=== PATIENT | male | born 1950 | race Caucasian/White ===

== ENCOUNTER 2016-12-20 14:48 | Day surgery (SDC) | payer OTHER ==
[2016-12-20] MEDS ORDERED: PROPOFOL 200 MG/20 ML VIAL ONE ×3 (16:02→16:11)
--- NOTE | 2016-12-20 16:12 | PDANEPAE ---
ANE History of Present Illness hx barretts esphagous ANE Past Medical History - Cardiovascular History Hx Hypertension: No Hx Arrhythmias: No Hx Chest Pain: No Hx Coronary Artery / Peripheral Vascular Disease: No Hx CHF / Valvular Disease: No Hx Palpitations: No - Pulmonary History Hx COPD: No Hx Asthma/Reactive Airway Disease: No Hx Recent Upper Respiratory Infection: No Hx Oxygen in Use at Home: No Hx Sleep Apnea: No Sleep Apnea Screening Result - Last Documented: Negative - Neurologic History Hx Cerebrovascular Accident: No Hx Seizures: No Hx Dementia: No Neurologic History Comment: CONCUSSION YRS AGO - Endocrine History Hx Diabetes: No - Renal History Hx Renal Disorders: Yes Renal History Comment: BPH. PROSTATITIS 2000. NOCTURIA - Liver History Hx Hepatic Disorders: Yes Hepatic History Comment: G[place]STONE - Neurological & Psychiatric Hx Hx Neurological and Psychiatric Disorders: No - Cancer History Hx Cancer: Yes Cancer History Comment: NEW DX LEUKEMIA 05/2015. PREV MELANOMA - Congenital Disorder History Hx Congenital Disorders: No - GI History Hx Gastrointestinal Disorders: Yes Gastrointestinal History Comment: REFLUX. EGD SHOWED BARRETTS. HEMORRHOIDS - Other Health History Other Health History: OSTEOARTHRITIS - Chronic Pain History Chronic Pain: No - Surgical History Prior Surgeries: BILATERAL TOTAL KNEE. REMVL MELANOMA LT LET. RT ING HERNIA. NEGRITA PATELLAR REALIGNMENT. REMVL LIPOMA FROM BACK ANE Review of Systems Review of Systems: - Exercise capacity Exercise capacity: <4 METS METS (RN): 5 METS ANE Patient History - Allergies Allergies/Adverse Reactions: tetracycline [Tetracycline] Allergy (Verified 02/18/11 16:17) Rash - Home Medications Home Medications: Omeprazole [Prilosec 20 mg] 20 mg PO DAILY 07/28/15 [Last Taken 12/20/16] Aspirin 81mg (*) 12/10/16 [Last Taken 12/18/16] Simvastatin 40 DAILY 12/10/16 [Last Taken 12/19/16] - NPO status NPO Since - Liquids (Date): 12/20/16 NPO Since - Liquids (Time): 11:00 NPO Since - Solids (Date): 12/19/16 NPO Since - Solids (Time): 20:00 - Smoking Hx Smoking Status: Former smoker - Family Anes Hx Family Hx Anesthesia Complications: none ANE Labs/Vital Signs - Vital Signs Blood Pressure: 159/90 Heart Rate: 71 Respiratory Rate: 16 O2 Sat (%): 97 Height: 190.5 cm Weight: 97.522 kg ANE Physical Exam - Airway Neck exam: FROM Mouth exam: normal dental/mouth exam - Pulmonary Pulmonary: no respiratory distress, no rales or rhonchi, clear to auscultation - Cardiovascular Cardiovascular: regular rate and rhythym - ASA Status ASA Status: I
--- NOTE | 2016-12-20 16:21 | PDGENHP ---
History & Physical Chief Complaint: heartburn History of Present Illness: heartburn Pertinent Past, Social, Family History: N/A Relevant Physical Exam: cor RRR pul CTAP abd NT ms nl
--- NOTE | 2016-12-20 16:46 | GIREPORT ---
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 Bx positive for "Cuevas's", as per pt. On omeprazole 40 mg daily since, but denies heartburn, even before this. Providers: Erik Engle MD Referring MD: Dean Garcia MD Medicines: Sedation Administered by an Anesthesia Professional Complications: No immediate complications. Description of Procedure: After obtaining informed consent, the endoscope was passed under direct vision. Throughout the procedure, the patient's blood pressure, pulse, and oxygen saturations were monitored continuously. The Endoscope was intro duced through the mouth, and advanced to the second part of duodenum. Findings: The examined esophagus was normal. No obvious Cuevas's seen. Biopsies were taken with a cold forceps for histology, just below the GE junction. The stomach was normal. The examined duodenum was normal. Estimated Blood Loss: Estimated blood loss: none. Post Op Diagnosis: - As above. No obvious Cuevas's. Biopsies done, to be complete, but may very well be normal. Recommendation: - Await pathology results. Further management, such as repeat EGD in 5 years if Cuevas's present (vs. do nothing), stopping omeprazole, etc., aurea hu on this result. We will call the pt. with these results. - Else, return to primary care physician PRN. Thank you! Kadie Valencia MD Erik Engle MD 12/20/2016 4:45:29 PM This report has been signed electronicallyPeter MD Kadie Number of Addenda: 0 Note Initiated On: 12/20/2016 3:52 PM [email or web address]
[2016-12-20] MEDS ORDERED: NALOXONE HCL 0.4 MG/ML INJ IVP PRN (16:53)
--- NOTE | 2016-12-20 16:53 | POSTANESTH ---
Post Anesthetic Evaluation Respiratory Status: Normal, Stable Level of Consciousness/Mental Status: Can Participate in Eval Pain Control: Adequate, Prn Tx Ordered Complications Possibly Related to Anesthesia: None Noted (awake)
[2016-12-20 17:09] VITALS: TEMP 97.9
[2016-12-20 17:23] VITALS: BP 132/81; PULSE 62; RESP 14; O2SAT 94
== END 2016-12-20 17:30 | disposition home or self-care (01) ==
LOC: FSGY 14:48
PROVIDERS: ATTEND Internal Medicine Gastroenterology
PROC: 0DB38ZX Excision of Lower Esophagus, Via Natural or Artificial Opening Endoscopic, Diagnostic (ICD-10-PCS; principal; 2016-12-20 16:00)
DX: K22.70 Barrett's esophagus without dysplasia (principal)
CPT/HCPCS: J2704

== ENCOUNTER → 2017-04-14 | Day surgery (SDC) | payer OTHER | END | disposition home or self-care (01) | LOC: FIMAGING 09:47 | PROVIDERS: ATTEND Internal Medicine Hematology & Oncology | PROC: 02HV33Z Insertion of Infusion Device into Superior Vena Cava, Percutaneous Approach (ICD-10-PCS; principal; 2017-04-14) | DX: C92.00 Acute myeloblastic leukemia, not having achieved remission (principal) | CPT/HCPCS: 36569; 77001; C1751 ==

== ENCOUNTER 2017-04-15 10:06 | Inpatient (IN) | payer OTHER ==
--- NOTE | 2017-04-15 13:09 | ECHO ---
[email or web address] [address] [address] Main: [phone] Fax: Transthoracic Echocardiogram Name: LAITH MENDEZ MR#: [id number] Study Date: 04/15/2017 Study Time: 11:50 AM Date of : 1950 Age: 66 year(s) Height: 190.5 cm (75 in.) Weight: 97.52 kg (215 lb.) BSA: 2.26 m2 Gender: Male Examination: Limited Echo Indication: limited echo to assess LV ejection fraction pre-chemo Image Quality: Adequate Contrast: Requested by: Renee Null BP: / Heart Rate: Rhythm: Indication: limited echo to assess LV ejection fraction pre-chemo Procedure Staff Show Operations Supervisor: Mary Devi [facility] Reading Physician: Justin Serrano MD Requesting Provider: Conclusions: Normal size left ventricle. No LV hypertrophy. Normal global systolic LV function. EF is 56 %. Limited study to assess LV function. Measurements: Chambers Valvular Assessment AV/MV Valvular Assessment TV/PV Normal Normal Normal Name Value Range Name Value Range Name Value Range IVSd (2D): 0.8 cm (0.6 cm-1.1 cm) LVDd (2D): 5.2 cm (4.2 cm-5.9 cm) LVDs (2D): 3.7 cm (2.1 cm-4 cm) LVPWd (2D): 0.9 cm (0.6 cm-1 cm) LVEF (BP): 56 % (>=55 %) Continued Measurements: Findings: Left Ventricle: Normal size left ventricle. No LV hypertrophy. Normal global systolic LV function. EF is 56 %. No regional wall motion abnormality. Exam Comments: Limited study to assess LV function. Patient: LAITH MENDEZ Study Date: 04/15/2017 Page 1 of 2 11:50 AM (No Signature Object) Patient: LAITH MENDEZ Study Date: 04/15/2017 Page 2 of 2 11:50 AM [id number]
--- NOTE | 2017-04-15 13:29 | GCON ---
[f rep st] CONSULTATION ONCOLOGY INITIAL VISIT. REASON FOR REQUEST: Recurrent AML. HISTORY OF PRESENT ILLNESS: Shar is a 66-year-old gentleman who was initially diagnosed with AML on May 19, 2015. He was treated with standard 7+3 induction chemotherapy. His malignancy showed nor mal cytogenetics, FLT3 negative, NPM1 positive. He then underwent consolidation with high-dose cytar abine for 4 cycles and all treatment finished in September 2015. He remained in remission and was doing well. I saw him in routine followup on April 06. He had no symptoms, but he had new thrombocy topenia and nucleated red blood cells. Flow cytometry showed 20% blasts in the peripheral blood. On Tuesday, he had a formal bone marrow biopsy, which the results are still pending, but the flow on bone marrow showed 43% blasts. He has met with bone marrow transplant yesterday and he is being ad mitted today for re-induction chemotherapy. He has no complaints. PAST MEDICAL HISTORY: Chronic illnesses include the acute leukemia as described in HPI. His first cy edgard was complicated with an enterocolitis. He also has early Cuevas's esophagitis. ALLERGIES: Tetracycline and perhaps acyclovir. HOME MEDICATIONS: Aspirin, omeprazole as needed, and simvastatin. PAST SURGICAL HISTORY: Includes bilateral knee replacement, hernia repair, and excision of a melanom a from left knee. Please add under chronic illnesses. FAMILY HISTORY: Father was diagnosed with metastatic renal cell carcinoma. His sister with previous history of breast cancer. Three children in good health. SOCIAL HISTORY: He is . 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 Uses alcohol rarely. Does not use illicit drugs. He never smoked. He did receive his flu vaccine this year and his last colonoscopy was 2013. REVIEW OF SYSTEMS: A 10-point review of systems performed, pertinent positives in HPI, otherwise neg ative. PHYSICAL EXAM: VITAL SIGNS: Weight is 214, temperature is 97.8, pulse 60, blood pressure last was 1 20/70. General: He is a well-appearing gentleman, no distress. HEENT: Unremarkable. LUNGS: Clear . CARDIAC: Regular. He has a PICC line in the right upper extremity. No sign or symptom of infecti on or inflammation. SKIN: Shows no significant rash or abnormalities. ABDOMEN: Soft, nontender, w ithout hepatosplenomegaly. NODES: Reveal no peripheral lymphadenopathy. MUSCULOSKELETAL: Nontender . NEUROLOGIC: Grossly intact. LABS: Bone marrow biopsy results and flow cytometry as per HPI. Final results still pending. Most recent white count was 4200 with an ANC of 1400, hemoglobin is normal at 15.6, platelet count 92,000. Again, blast count was about 20% in the peripheral blood. IMPRESSION: 1. Recurrent acute myelogenous leukemia. 2. Enterocolitis with first cycle of chemotherapy. 3. History of early Cuevas's esophagitis. He is essentially asymptomatic, but is showing recurrent AML. The plan is to reinduced him with 7 an d 3 since it has been 2 years since his induction. Once he goes in remission, the next plan is to un dergo an allogeneic bone marrow transplant for cure. The patient is aware of the situation and had n o further questions. He has had a PICC line placed for the chemotherapy and will get a baseline echo cardiogram. Otherwise, he is clinically stable to proceed on with chemotherapy. He can use either H 2 ilda or PPI as needed for acid reflux. I do not recommend aggressive hydration or allopurinol s jamar he is taking things orally fine at this time. I think the risk of severe tumor lysis is low. /[id number]/MODL
[2017-04-15] MEDS ORDERED: ONDANSETRON DISINTEGRATING 4 MG TAB PO PRN (15:29)
[2017-04-15] MEDS ORDERED: oxyCODONE IR 5 MG TAB PO PRN (15:29)
[2017-04-15] MEDS: DEXAMETHASONE 4 MG TAB PO SCH (15:33)
[2017-04-15] MEDS: ONDANSETRON 4 MG/2 ML VIAL IVP SCH (15:34)
--- NOTE | 2017-04-15 15:37 | PDGENHP ---
History and Physical - Chief Complaint elective chemotherapy - History of Present Illness The pt is a 66 yo male with recurrent AML here for elective chemotherapy. Recurrence recently discovered during routine f/u. He is not symptomatic. He is being admitted for elective chemotherapy He has a hx of chemotherapy induced enterocolitis No GI sxs at this time Afebrile. no cp, sob, edema, n/v/d, focal weakness PMHx: AML, chemotherapy induced enterocolitis, Barrets Esophagus, HLD, Melanoma Left Knee SurgHx: bilateral knee replacements, hernia repair SocHx: No T/E/I FmHx: NC Labs: none Echo: done today. WNL, preserved LVEF History Information - Allergies/Home Medication List Allergies/Adverse Reactions: neomycin Allergy (Verified 04/15/17 11:22) Unknown tetracycline [Tetracycline] Allergy (Verified 04/15/17 11:22) Rash Home Medications: Aspirin [Aspirin 81mg (*)] 81 mg PO DAILY 04/15/17 [Last Taken 04/01/17] Omeprazole 40 mg PO DAILY 04/15/17 [Last Taken Unknown] Simvastatin 40 mg PO HS 04/15/17 [Last Taken 04/01/17] Triazolam [Halcion 0.25MG (*)] 0.25 mg PO HS PRN 04/15/17 [Last Taken Unknown] I have personally reviewed and updated: medical history, social history - Social History Smoking Status: Former smoker Review of Systems Review of Systems: ROS: 10pt was reviewed & negative except for what was stated in HPI & below Physical Exam Physical Exam: Temp Pulse Resp BP Pulse Ox 36.7 C 58 L 16 134/70 H 95 04/15/17 12:03 04/15/17 12:03 04/15/17 12:03 04/15/17 12:03 04/15/17 12:03 Constitutional: no apparent distress Eyes: PERRL, EOMI Ears, Nose, Mouth, Throat: moist mucous membranes, hearing normal Cardiovascular: regular rate and rhythym, No edema Respiratory: no respiratory distress, no rales or rhonchi Gastrointestinal: normoactive bowel sounds, soft, non-tender abdomen Skin: warm Musculoskeletal: full muscle strength Neurologic: AAOx3 Psychiatric: interacting appropriately, not anxious, not encephalopathic, thought process linear Lymph, Heme, Immunologic: No petechiae Assessment & Plan Assessment: #Recurrent AML -elective Chemotherapy #Hx of chemotherapy induced enterocolitis Plan: Admission Chemo per Onc PICC line Lovenox for DVT proph Limited code, no chest compressions, confirmed today
--- NOTE | 2017-04-15 15:37 | ASMTCMCOM ---
CM Note CM Note Notes: Pt direct admit from [facility] for recurrence of AML. Plan is to place PICC and start chemo for reinduction. pt planning on bone marrow transplant in future. CM to follow for DC needs. Date Signed: 04/15/2017 03:37 PM Electronically Signed By:Ewa Fraire LCSW
[2017-04-15] MEDS ORDERED: TRIAZOLAM 0.25 MG TAB PO PRN (15:40)
--- NOTE | 2017-04-15 16:10 | PDMN ---
Medical Necessity Medical necessity: Patient meets inpatient criteria per physician note and [facility] [place] M -87 Chemotherapy (re-induction of chemo for recurrent AML; bone marrow biopsy /results pending; history of enterocolitis w/first cycle of chemotherapy; anticipated LOS > 2 midnights for ongoing chemo and monitoring of labs/chemo side effects.). .
[2017-04-15] MEDS: IDARUBICIN IV SCH (16:55)
[2017-04-15] MEDS: NS IV SCH (17:31)
[2017-04-15] MEDS: CYTARABINE IV SCH (17:31)
[2017-04-15] MEDS ORDERED: ATORVASTATIN CALCIUM 20 MG TAB PO SCH (21:00)
[2017-04-16 06:13] LABS: PLATELET COUNT 90 10^3/uL (150-400)
--- NOTE | 2017-04-16 08:23 | SOAPPROG ---
SOAP Progress Note Assessment/Plan: Assessment: 1. AML, relapse, Day 1 reinduction 2.History neutropenic enterocolitis 3. History Cueavs's esophagus Plan:Proceed with chemo today, echo ok with EF 56%.Will d/c asa and lipitor, stop lovenox when plts less than 50K 04/16/17 08:19 Subjective: Feels ok today, no complaints Objective: Vital Signs Temp Pulse Resp BP Pulse Ox 98.1 F 66 18 115/67 94 04/16/17 07:30 04/16/17 07:30 04/16/17 07:30 04/16/17 07:30 04/16/17 07:30 Laboratory Results 04/16/17 05:50 04/16/17 05:50 04/15/17 04/16/17 04/17/17 05:59 05:59 05:59 Intake Total 1200 536 Balance 1200 536 Physical Exam - Physical Exam General Appearance: alert, no apparent distress Respiratory: lungs clear, normal breath sounds Cardiac/Chest: regular rate, rhythm Abdomen: normal bowel sounds, non-tender Extremities: other (Pic R arm) ICD10 Worksheet Patient Problems: Problems Problem Status Onset AML (acute myeloblastic leukemia) Acute Neutropenic colitis Acute Thrombocytopenia due to diminished platelet production Acute
[2017-04-16] MEDS ORDERED: ASPIRIN 81 MG CHEWABLE TAB PO SCH (09:00)
[2017-04-16] MEDS ORDERED: PROMETHAZINE HCL 25 MG/ML INJ IVP PRN (09:58)
[2017-04-16] MEDS: PANTOPRAZOLE SODIUM 40 MG TAB PO SCH (09:58)
[2017-04-16] MEDS: ENOXAPARIN 40 MG/0.4 ML SYR SC SCH ×2 (09:58→10:31)
--- NOTE | 2017-04-16 12:12 | HOSPPROG ---
Hospitalist Progress Note Assessment/Plan: #Recurrent AML -elective Chemotherapy #Hx of chemotherapy induced enterocolitis Plan: Chemo per Onc PICC line stop Lovenox per his request ASA and Lipitor stopped by Onc Limited code, no chest compressions, confirmed on admission Subjective: no new complaints Objective: Vital Signs Temp Pulse Resp BP Pulse Ox 36.7 C 66 18 115/67 94 04/16/17 07:30 04/16/17 07:30 04/16/17 07:30 04/16/17 07:30 04/16/17 07:30 Laboratory Results 04/16/17 05:50 04/16/17 05:50 04/15/17 04/16/17 04/17/17 05:59 05:59 05:59 Intake Total 1200 536 Balance 1200 536 - Physical Exam Constitutional: no apparent distress Eyes: PERRL, EOMI Ears, Nose, Mouth, Throat: moist mucous membranes, hearing normal Cardiovascular: regular rate and rhythym, No edema Respiratory: no respiratory distress Gastrointestinal: normoactive bowel sounds, soft, non-tender abdomen Skin: warm Neurologic: AAOx3 Psychiatric: interacting appropriately, not anxious, not encephalopathic ICD10 Worksheet Patient Problems: Problems Problem Status Onset AML (acute myeloblastic leukemia) Acute Neutropenic colitis Acute Thrombocytopenia due to diminished platelet production Acute
[2017-04-16] MEDS: ONDANSETRON 4 MG/2 ML VIAL IVP PRN (12:47)
[2017-04-16] MEDS: DEXAMETHASONE 4 MG TAB PO SCH (15:49)
[2017-04-16] MEDS: ONDANSETRON 4 MG/2 ML VIAL IVP SCH (15:51)
[2017-04-16] MEDS: IDARUBICIN IV SCH (16:49)
[2017-04-16] MEDS: CYTARABINE IV SCH (17:38)
[2017-04-16] MEDS: NS IV SCH (17:38)
[2017-04-17 05:23] LABS: PLATELET COUNT 83 10^3/uL (150-400)
[2017-04-17] MEDS: PANTOPRAZOLE SODIUM 40 MG TAB PO SCH (08:22)
[2017-04-17] MEDS: ONDANSETRON 4 MG/2 ML VIAL IVP PRN (08:22)
--- NOTE | 2017-04-17 08:25 | SOAPPROG ---
SOAP Progress Note Assessment/Plan: Assessment: 1. AML, relapse, Day 2 reinduction 2.History neutropenic enterocolitis 3. History Cuevas's esophagus Plan:continue chemo, follow counts, review bone marrow results this week 04/16/17 08:19 04/17/17 08:22 Subjective: Feels ok, appetite down a bit Objective: Vital Signs Temp Pulse Resp BP Pulse Ox 97.8 F 68 18 113/54 L 96 04/17/17 08:11 04/17/17 08:11 04/17/17 08:11 04/17/17 08:11 04/17/17 08:11 Laboratory Results 04/17/17 05:00 04/17/17 05:00 04/16/17 04/17/17 04/18/17 05:59 05:59 05:59 Intake Total 1200 2466 Output Total 5 Balance 1200 2461 Physical Exam - Physical Exam General Appearance: alert, no apparent distress Respiratory: lungs clear Cardiac/Chest: regular rate, rhythm Abdomen: normal bowel sounds, non-tender ICD10 Worksheet Patient Problems: Problems Problem Status Onset AML (acute myeloblastic leukemia) Acute Neutropenic colitis Acute Thrombocytopenia due to diminished platelet production Acute
--- NOTE | 2017-04-17 11:55 | HOSPPROG ---
Hospitalist Progress Note Assessment/Plan: #Recurrent AML -elective Chemotherapy #Hx of chemotherapy induced enterocolitis #Thrombocytopenia, monitor, platelets 83 today Plan: Chemo/reinduction per Onc PICC line no Lovenox per his request ASA and Lipitor stopped by Onc Limited code, no chest compressions, confirmed on admission Subjective: no overnight events. no new complaints Objective: Vital Signs Temp Pulse Resp BP Pulse Ox 36.6 C 68 18 113/54 L 96 04/17/17 08:11 04/17/17 08:11 04/17/17 08:11 04/17/17 08:11 04/17/17 08:11 Laboratory Results 04/17/17 05:00 04/17/17 05:00 04/16/17 04/17/17 04/18/17 05:59 05:59 05:59 Intake Total 1200 2466 Output Total 5 Balance 1200 2461 - Physical Exam Constitutional: no apparent distress Eyes: PERRL, EOMI Ears, Nose, Mouth, Throat: moist mucous membranes, hearing normal Cardiovascular: regular rate and rhythym, No edema Respiratory: no respiratory distress, no rales or rhonchi Gastrointestinal: normoactive bowel sounds, soft, non-tender abdomen Skin: warm Neurologic: AAOx3 Psychiatric: interacting appropriately, not anxious, not encephalopathic ICD10 Worksheet Patient Problems: Problems Problem Status Onset AML (acute myeloblastic leukemia) Acute Neutropenic colitis Acute Thrombocytopenia due to diminished platelet production Acute
[2017-04-17] MEDS: PROCHLORPERAZINE MALEATE 10 MG TAB PO PRN (14:34)
[2017-04-17] MEDS ORDERED: PALONOSETRON HCL 0.25 MG/5 ML VIAL IVP SCH (15:30)
[2017-04-17] MEDS: DEXAMETHASONE 4 MG TAB PO SCH (15:30)
[2017-04-17] MEDS: IDARUBICIN IV SCH (16:52)
[2017-04-17] MEDS: CYTARABINE IV SCH (17:06)
[2017-04-17] MEDS: NS IV SCH (17:06)
[2017-04-18] MEDS: PROCHLORPERAZINE MALEATE 10 MG TAB PO PRN ×4 (00:50→22:27)
[2017-04-18 05:34] LABS: PLATELET COUNT 71 10^3/uL (150-400)
--- NOTE | 2017-04-18 09:13 | HOSPPROG ---
Hospitalist Progress Note Assessment/Plan: #AML: here for elective reinduction chemo. Day 4 #Pancytopenia: due to above #h/o neutropenic enterocolitis #h/o Cuevas's esophagus: PPI #Nausea: had hard time with this last admission. Encouraged him to take companzine BID for better control #DVT ppx: ambulating #Disp: cont inpatient admission for IV chemo Subjective: mild nausea last night. No emesis Objective: Vital Signs Temp Pulse Resp BP Pulse Ox 36.6 C 66 16 119/56 L 91 L 04/18/17 07:11 04/18/17 07:11 04/18/17 07:11 04/18/17 07:11 04/18/17 07:11 Laboratory Results 04/18/17 05:15 04/18/17 05:15 04/17/17 04/18/17 04/19/17 05:59 05:59 05:59 Intake Total 2466 1621 Output Total 5 Balance 2461 1621 - Physical Exam Constitutional: no apparent distress Eyes: PERRL Ears, Nose, Mouth, Throat: moist mucous membranes Cardiovascular: regular rate and rhythym, No edema Respiratory: no respiratory distress, no rales or rhonchi Gastrointestinal: normoactive bowel sounds, soft, non-tender abdomen Genitourinary: no bladder fullness Skin: warm Musculoskeletal: full muscle strength Neurologic: AAOx3, CN II-XII Intact Psychiatric: interacting appropriately ICD10 Worksheet Patient Problems: Problems Problem Status Onset AML (acute myeloblastic leukemia) Acute Neutropenic colitis Acute Thrombocytopenia due to diminished platelet production Acute
[2017-04-18] MEDS: PANTOPRAZOLE SODIUM 40 MG TAB PO SCH ×2 (09:34→09:35)
--- NOTE | 2017-04-18 10:19 | SOAPPROG ---
SOAP Progress Note Assessment/Plan: Assessment/Plan: 66 yo gentleman w relapsed AML admitted for re-induction 1. Relapsed AML - admitted for 7+3, Day 4 today doing well counts stable supportive care pending final bone marrow results and molecular analysis plan transplant at [facility] 2. Hx of neutropenic enterocolitis 3. Hx of Cuevas's esophagus 4. Thrombocytopenia - AML + chemo 04/18/17 10:16 Subjective: No acute events mild nausea denies SOB or abdominal pain Objective: Vital Signs Temp Pulse Resp BP Pulse Ox 36.6 C 66 16 119/56 L 91 L 04/18/17 07:11 04/18/17 07:11 04/18/17 07:11 04/18/17 07:11 04/18/17 07:11 Laboratory Results 04/18/17 05:15 04/18/17 05:15 04/17/17 04/18/17 04/19/17 05:59 05:59 05:59 Intake Total 2466 1621 Output Total 5 Balance 2461 1621 Gen - NAD HEENT - OP clear CV - RRR Chest - CTAB Abd - soft, NT, BS+ Ext - no edema ICD10 Worksheet Patient Problems: Problems Problem Status Onset AML (acute myeloblastic leukemia) Acute Neutropenic colitis Acute Thrombocytopenia due to diminished platelet production Acute
--- NOTE | 2017-04-18 12:52 | ASMTCMCOM ---
CM Note CM Note Notes: D/C needs TBD. No therapies have been ordered. CM available if d/c needs arise. Date Signed: 04/18/2017 12:51 PM Electronically Signed By:Yvette Fallon LCSW
[2017-04-18] MEDS: CYTARABINE IV SCH (18:08)
[2017-04-18] MEDS: NS IV SCH (18:08)
[2017-04-19] MEDS: PROCHLORPERAZINE MALEATE 10 MG TAB PO PRN ×3 (05:36→19:47)
[2017-04-19 05:56] LABS: PLATELET COUNT 52 10^3/uL (150-400)
[2017-04-19] MEDS: PANTOPRAZOLE SODIUM 40 MG TAB PO SCH (09:50)
--- NOTE | 2017-04-19 11:29 | HOSPPROG ---
Hospitalist Progress Note Assessment/Plan: #Recurrent AML: here for elective reinduction chemo. Day 5 #Pancytopenia: counts down a bit today, but stable. Transfuse if platelets <10 #h/o neutropenic enterocolitis #h/o Cuevas's esophagus: PPI #Nausea: controlled on scheduled antiemetics #DVT ppx: ambulating #Disp: cont inpatient admission for IV chemo Subjective: nausea controlled. Eating without isssue Objective: Vital Signs Temp Pulse Resp BP Pulse Ox 36.8 C 58 L 18 110/68 93 04/19/17 08:00 04/19/17 08:00 04/19/17 08:00 04/19/17 08:00 04/19/17 08:00 Laboratory Results 04/19/17 05:40 04/18/17 05:15 04/18/17 04/19/17 04/20/17 05:59 05:59 05:59 Intake Total 1621 2478 Balance 1621 2478 - Physical Exam Constitutional: no apparent distress Eyes: PERRL Ears, Nose, Mouth, Throat: moist mucous membranes Cardiovascular: regular rate and rhythym, no murmur, rub, or gallop Respiratory: no respiratory distress, no rales or rhonchi Gastrointestinal: normoactive bowel sounds Genitourinary: no bladder fullness Skin: warm Musculoskeletal: full muscle strength Neurologic: AAOx3, CN II-XII Intact Psychiatric: interacting appropriately ICD10 Worksheet Patient Problems: Problems Problem Status Onset AML (acute myeloblastic leukemia) Acute Neutropenic colitis Acute Thrombocytopenia due to diminished platelet production Acute
--- NOTE | 2017-04-19 12:58 | SOAPPROG ---
SOAP Progress Note Assessment/Plan: Assessment/Plan: 66 yo gentleman w relapsed AML admitted for re-induction 1. Relapsed AML - admitted for 7+3, Day 5 today doing well counts relatively stable supportive care pending final bone marrow results and molecular analysis plan transplant at [facility] 2. Hx of neutropenic enterocolitis 3. Hx of Cuevas's esophagus 4. Thrombocytopenia - AML + chemo platelet transfusion if bleeding or plts <10k 04/18/17 10:16 04/19/17 12:56 Subjective: Doing well no complaint nausea controlled w Compazine Objective: Vital Signs Temp Pulse Resp BP Pulse Ox 36.8 C 58 L 18 110/68 93 04/19/17 08:00 04/19/17 08:00 04/19/17 08:00 04/19/17 08:00 04/19/17 08:00 Laboratory Results 04/19/17 05:40 04/18/17 05:15 04/18/17 04/19/17 04/20/17 05:59 05:59 05:59 Intake Total 1621 2478 Balance 1621 2478 Gen - NAD HEENT - anicteric op clear CV - RRR Chest - clear anteriorly ext - no sig edema neuro -nonfocal Lines - PICC RUE c/d/i ICD10 Worksheet Patient Problems: Problems Problem Status Onset AML (acute myeloblastic leukemia) Acute Neutropenic colitis Acute Thrombocytopenia due to diminished platelet production Acute
--- NOTE | 2017-04-19 13:34 | ASMTCMCOM ---
CM Note CM Note Notes: Patient chart reviewed. Patient is here for re-induction of chemotherapy, He is currently independent with ADLS and no needs identified at this time. Cm available should needs arise. Date Signed: 04/19/2017 01:33 PM Electronically Signed By:Carey Ramos RN
[2017-04-19] MEDS: NS IV SCH (18:07)
[2017-04-19] MEDS: CYTARABINE IV SCH (18:07)
[2017-04-20] MEDS: PROCHLORPERAZINE MALEATE 10 MG TAB PO PRN ×2 (03:57→15:30)
[2017-04-20 04:28] LABS: PLATELET COUNT 57 10^3/uL (150-400)
--- NOTE | 2017-04-20 13:03 | SOAPPROG ---
SOAP Progress Note Assessment/Plan: Assessment/Plan: 66 yo gentleman w relapsed AML admitted for re-induction 1. Relapsed AML - admitted for 7+3, Day 6 today doing well counts relatively stable supportive care final bone marrow results show 33% blasts cytogenetics/molecular analysis still pending plan transplant at [facility] 2. Hx of neutropenic enterocolitis 3. Hx of Cuevas's esophagus 4. Thrombocytopenia - AML + chemo platelet transfusion if bleeding or plts <10k 5. Nausea - controlled w current regimen 04/20/17 13:00 Subjective: No acute events denies mouth sores or cough/CP Objective: Vital Signs Temp Pulse Resp BP Pulse Ox 37.2 C 64 16 116/62 95 04/20/17 08:00 04/20/17 08:00 04/20/17 08:00 04/20/17 08:00 04/20/17 08:00 Laboratory Results 04/20/17 04:00 04/20/17 04:00 04/19/17 04/20/17 04/21/17 05:59 05:59 05:59 Intake Total 2478 682 Balance 2478 682 Gen - NAD HEENT - anicteric, clear OP CV - RRR Lungs clear anteriorly Abd - soft, NT, BS+ Ext - no edema ICD10 Worksheet Patient Problems: Problems Problem Status Onset AML (acute myeloblastic leukemia) Acute Neutropenic colitis Acute Thrombocytopenia due to diminished platelet production Acute
--- NOTE | 2017-04-20 17:05 | HOSPPROG ---
Hospitalist Progress Note Assessment/Plan: #Recurrent AML: here for elective reinduction chemo. Day 6 #Pancytopenia: due to chemo. Transfuse if platelets <10 #h/o neutropenic enterocolitis #h/o Cuevas's esophagus: PPI #Nausea: controlled on scheduled antiemetics #DVT ppx: ambulating #Disp: cont inpatient admission for IV chemo Subjective: eating without issue Objective: Vital Signs Temp Pulse Resp BP Pulse Ox 37.2 C 67 16 116/62 97 04/20/17 08:00 04/20/17 16:00 04/20/17 16:00 04/20/17 08:00 04/20/17 16:00 Laboratory Results 04/20/17 04:00 04/20/17 04:00 04/19/17 04/20/17 04/21/17 05:59 05:59 05:59 Intake Total 2478 682 700 Balance 2478 682 700 - Physical Exam Constitutional: no apparent distress Eyes: PERRL Ears, Nose, Mouth, Throat: moist mucous membranes Cardiovascular: regular rate and rhythym Respiratory: no respiratory distress Gastrointestinal: normoactive bowel sounds, soft, non-tender abdomen Genitourinary: no bladder fullness Skin: warm Musculoskeletal: full muscle strength Neurologic: AAOx3, CN II-XII Intact ICD10 Worksheet Patient Problems: Problems Problem Status Onset AML (acute myeloblastic leukemia) Acute Neutropenic colitis Acute Thrombocytopenia due to diminished platelet production Acute
[2017-04-20] MEDS: CYTARABINE IV SCH (19:44)
[2017-04-20] MEDS: NS IV SCH (19:44)
[2017-04-21] MEDS: PROCHLORPERAZINE MALEATE 10 MG TAB PO PRN (04:20)
[2017-04-21 04:45] LABS: PLATELET COUNT 41 10^3/uL (150-400)
--- NOTE | 2017-04-21 08:15 | HOSPPROG ---
Hospitalist Progress Note Assessment/Plan: #Recurrent AML: here for elective reinduction chemo. Day 7. Plan for transplant #Neutropenia: start ppx LQ, Valcyclovir #Pancytopenia: due to chemo. Transfuse if platelets <10 #h/o neutropenic enterocolitis #h/o Cuevas's esophagus: PPI #Nausea: controlled on scheduled antiemetics #DVT ppx: ambulating #Disp: cont inpatient admission for IV chemo Subjective: nausea stable. Energy levels good, walking Objective: Vital Signs Temp Pulse Resp BP Pulse Ox 36.8 C 68 16 124/77 H 92 04/21/17 04:21 04/21/17 04:21 04/21/17 04:21 04/21/17 04:21 04/21/17 04:21 Laboratory Results 04/21/17 04:20 04/21/17 04:20 04/20/17 04/21/17 04/22/17 05:59 05:59 05:59 Intake Total 682 2209 100 Balance 682 2209 100 - Physical Exam Constitutional: no apparent distress Eyes: PERRL Ears, Nose, Mouth, Throat: moist mucous membranes Cardiovascular: regular rate and rhythym Respiratory: no respiratory distress Gastrointestinal: normoactive bowel sounds Genitourinary: no bladder fullness Skin: warm, other Musculoskeletal: full muscle strength Neurologic: AAOx3, CN II-XII Intact Psychiatric: interacting appropriately ICD10 Worksheet Patient Problems: Problems Problem Status Onset AML (acute myeloblastic leukemia) Acute Neutropenic colitis Acute Thrombocytopenia due to diminished platelet production Acute
[2017-04-21] MEDS: PANTOPRAZOLE SODIUM 40 MG TAB PO SCH (10:14)
--- NOTE | 2017-04-21 11:42 | SOAPPROG ---
SOAP Progress Note Assessment/Plan: Assessment/Plan: 66 yo gentleman w relapsed AML admitted for re-induction 1. Relapsed AML - admitted for 7+3, Day 6 today doing well counts relatively stable supportive care ppx added Levaquin and valacyclovir today (had rash w acyclovir) final bone marrow results show 33% blasts cytogenetics/molecular analysis still pending plan transplant at [facility] 2. Hx of neutropenic enterocolitis 3. Hx of Cuevas's esophagus 4. Thrombocytopenia - AML + chemo platelet transfusion if bleeding or plts <10k 5. Nausea - controlled w current regimen Subjective: No acute events denies CP, SOB, or mouth sores Objective: Vital Signs Temp Pulse Resp BP Pulse Ox 36.9 C 68 16 118/62 94 04/21/17 08:20 04/21/17 08:20 04/21/17 08:20 04/21/17 08:20 04/21/17 08:20 Laboratory Results 04/21/17 04:20 04/21/17 04:20 04/20/17 04/21/17 04/22/17 05:59 05:59 05:59 Intake Total 682 2209 100 Balance 682 2209 100 Gen - NAD HEENT - op clear CV - RRR Chest - clear Abd - soft, NT/ND, BS+ Ext - no edema or rash ICD10 Worksheet Patient Problems: Problems Problem Status Onset AML (acute myeloblastic leukemia) Acute Neutropenic colitis Acute Thrombocytopenia due to diminished platelet production Acute
[2017-04-21] MEDS: valACYclovir 500 MG TAB PO SCH (13:56)
[2017-04-21] MEDS ORDERED: ALTEPLASE 2 MG VIAL IVP ONE (14:11)
--- NOTE | 2017-04-21 16:16 | ASMTCMCOM ---
CM Note CM Note Notes: Pt will have no DC needs. However, if he DCs with PICC line, he may to be set up with outpt PICC care. Date Signed: 04/21/2017 04:15 PM Electronically Signed By:Ewa Fraire LCSW
[2017-04-21] MEDS: CYTARABINE IV SCH (21:31)
[2017-04-21] MEDS: NS IV SCH (21:31)
[2017-04-22] MEDS ORDERED: ALTEPLASE 2 MG VIAL IVP ONE (01:30)
[2017-04-22 05:45] LABS: PLATELET COUNT 29 10^3/uL (150-400)
[2017-04-22] MEDS ORDERED: valACYclovir 500 MG TAB PO SCH (09:00)
[2017-04-22] MEDS: valACYclovir 500 MG TAB PO SCH (10:07)
[2017-04-22] MEDS: PANTOPRAZOLE SODIUM 40 MG TAB PO SCH (10:07)
--- NOTE | 2017-04-22 11:56 | SOAPPROG ---
SOAP Progress Note Assessment/Plan: Assessment/Plan: 66 yo gentleman w relapsed AML admitted for re-induction 1. Relapsed AML - admitted for 7+3, Day 7 today counts dropping as expected supportive care ppx Levaquin and valacyclovir (had rash w acyclovir) final bone marrow results from recent show 33% blasts; cytogenetics/molecular analysis still pending plan transplant at [facility] 2. Hx of neutropenic enterocolitis 3. Hx of Cuevas's esophagus 4. Thrombocytopenia - AML + chemo platelet transfusion if bleeding or plts <10k 5. Nausea - controlled w current regimen 04/22/17 11:54 Subjective: No acute events denies SOB or mouth sores Objective: Vital Signs Temp Pulse Resp BP Pulse Ox 36.9 C 73 18 104/62 95 04/22/17 09:55 04/22/17 09:55 04/22/17 09:55 04/22/17 09:55 04/22/17 09:55 Laboratory Results 04/22/17 05:00 04/22/17 05:00 04/21/17 04/22/17 04/23/17 05:59 05:59 05:59 Intake Total 2209 900 Balance 2209 900 Gen - NAD HEENT - anicteric CV - RRR Resp - CTAB Abd - soft, NT Ext - no edema ICD10 Worksheet Patient Problems: Problems Problem Status Onset AML (acute myeloblastic leukemia) Acute Neutropenic colitis Acute Thrombocytopenia due to diminished platelet production Acute
--- NOTE | 2017-04-22 16:14 | HOSPPROG ---
Hospitalist Progress Note Assessment/Plan: #Recurrent AML: here for elective reinduction chemo. Day 8. Plan for transplant at [facility] -counts trending down. On ppx LQ, Valcyclovir #Pancytopenia: due to chemo. Transfuse if platelets <10 #h/o neutropenic enterocolitis #h/o Cuevas's esophagus: PPI #Nausea: controlled on scheduled antiemetics #DVT ppx: ambulating #Disp: cont inpatient admission for IV chemo Subjective: fatigued. No nausea Objective: Vital Signs Temp Pulse Resp BP Pulse Ox 36.9 C 73 18 104/62 95 04/22/17 09:55 04/22/17 09:55 04/22/17 09:55 04/22/17 09:55 04/22/17 09:55 Laboratory Results 04/22/17 05:00 04/22/17 05:00 04/21/17 04/22/17 04/23/17 05:59 05:59 05:59 Intake Total 2209 900 Balance 2209 900 - Physical Exam Constitutional: other (pale) Eyes: PERRL Ears, Nose, Mouth, Throat: moist mucous membranes Cardiovascular: regular rate and rhythym Respiratory: no respiratory distress Gastrointestinal: normoactive bowel sounds, soft, non-tender abdomen Genitourinary: no bladder fullness Skin: warm Musculoskeletal: full muscle strength Neurologic: AAOx3, asterixes, CN II-XII Intact ICD10 Worksheet Patient Problems: Problems Problem Status Onset AML (acute myeloblastic leukemia) Acute Neutropenic colitis Acute Thrombocytopenia due to diminished platelet production Acute
--- NOTE | 2017-04-22 16:28 | ASMTCMCOM ---
CM Note CM Note Notes: Chart reviewed. Patient up ambulating in the halls independently. Tolerating chemotherapy. No needs dentifed. CM ill continue to follow and be available should needs arise. Date Signed: 04/22/2017 04:27 PM Electronically Signed By:Carey Ramos RN
[2017-04-23 06:55] LABS: PLATELET COUNT 19 10^3/uL (150-400)
--- NOTE | 2017-04-23 09:30 | SOAPPROG ---
SOAP Progress Note Assessment/Plan: E&M for AML * Relapsed AML with normal cyto; previous FLT3-, NPM1+ (current results pending) : Day 8 of 7+3 (total Yaritza 72 mg/m2). * Doing well and pancytopenic as expected * If no issues next week, do not recommend day 14 marrow and rather repeat after recovery (limited ability to give more Yaritza) * Continue prophylactic levofloxacin and valacyclovir * Plan is to get into remission then go for allogeneic transplant * Pancytopenia * Irradiate and leukoreduce all products * transfuse for plt<10,000 * transfuse for Hgb<6.5 g/dL Subjective: Bored. Decreased stamina but feeling well. No mouth sores. No n/v. No abd pain or diarrhea. No bleeding. Objective: Vital Signs Temp Pulse Resp BP Pulse Ox 36.7 C 64 16 110/62 92 04/23/17 06:16 04/23/17 06:16 04/23/17 06:16 04/23/17 06:16 04/23/17 06:16 Laboratory Results 04/23/17 06:15 04/23/17 06:15 04/22/17 04/23/17 04/24/17 05:59 05:59 05:59 Intake Total 900 900 Balance 900 900 Laboratory Tests 04/21/17 04/22/17 04/23/17 04:20 05:00 06:15 WBC 1.30 L 0.70 L* 0.55 L* Hgb 12.3 L 11.8 L 11.5 L Plt Count 41 L 29 L* 19 L* Physical Exam - Physical Exam General Appearance: no apparent distress EENT: pharynx normal Respiratory: lungs clear Cardiac/Chest: regular rate, rhythm Skin: other (PICC on right ok.) ICD10 Worksheet Patient Problems: Problems Problem Status Onset AML (acute myeloblastic leukemia) Acute Neutropenic colitis Acute Thrombocytopenia due to diminished platelet production Acute
[2017-04-23] MEDS: valACYclovir 500 MG TAB PO SCH (11:15)
[2017-04-23] MEDS: PANTOPRAZOLE SODIUM 40 MG TAB PO SCH (11:15)
--- NOTE | 2017-04-23 14:32 | HOSPPROG ---
Hospitalist Progress Note Assessment/Plan: 66-year-old with relapsed AML is admitted for chemotherapy, he has completed chemotherapy however will need to monitor for likely need for transfusion for expected alex next week # Relapsed AML with normal cyto; previous FLT3-, NPM1+ (current results pending ): Day 8 of 7+3 (total Yaritza 72 mg/m2). * Doing well and pancytopenic as expected * If no issues next week, do not recommend day 14 marrow and rather repeat after recovery (limited ability to give more Yaritza) * Continue prophylactic levofloxacin and valacyclovir * Plan is to get into remission then go for allogeneic transplant # Pancytopenia * Irradiate and leukoreduce all products * transfuse for plt<10,000 * transfuse for Hgb<6.5 g/dL # history of neutropenic enterocolitis # history of Cuevas's esophagitis continue PPI # nausea controlled on scheduled antiemetics, eating well. # DVT prophylaxis, patient ambulating chemical prophylaxis contraindicated due to thrombocytopenia Subjective: Patient new to me and chart reviewed. Feeling well today. Does not like the food here but otherwise eating well Objective: Vital Signs Temp Pulse Resp BP Pulse Ox 37.2 C 73 18 100/64 97 04/23/17 11:40 04/23/17 11:40 04/23/17 11:40 04/23/17 11:40 04/23/17 11:40 Laboratory Results 04/23/17 06:15 04/23/17 06:15 04/22/17 04/23/17 04/24/17 05:59 05:59 05:59 Intake Total 900 900 Balance 900 900 - Physical Exam Constitutional: no apparent distress Cardiovascular: regular rate and rhythym Respiratory: no respiratory distress Neurologic: AAOx3 Psychiatric: interacting appropriately ICD10 Worksheet Patient Problems: Problems Problem Status Onset AML (acute myeloblastic leukemia) Acute Neutropenic colitis Acute Thrombocytopenia due to diminished platelet production Acute
[2017-04-24 06:07] LABS: PLATELET COUNT 12 10^3/uL (150-400)
[2017-04-24] MEDS: PANTOPRAZOLE SODIUM 40 MG TAB PO SCH (09:36)
[2017-04-24] MEDS: valACYclovir 500 MG TAB PO SCH (09:36)
--- NOTE | 2017-04-24 10:14 | SOAPPROG ---
SOAP Progress Note Assessment/Plan: E&M for AML * Relapsed AML with normal cyto; previous FLT3-, NPM1+ (current results pending) : Day 9 of 7+3 (total Yaritza 72 mg/m2). * Doing well and pancytopenic as expected * If no issues next week, do not recommend day 14 marrow instead I prefer to repeat after recovery (limited ability to give more Yaritza) * Continue prophylactic levofloxacin and valacyclovir * Plan is to get into remission then allogeneic transplant * Pancytopenia * Irradiate and leukoreduce all products * transfuse for plt<10,000 * transfuse for Hgb<6.5 g/dL * No need for transfusion today Subjective: No problems. Appetite fair but eating. No diarrhea. No mouth sores. No bruising/ bleeding. Objective: Vital Signs Temp Pulse Resp BP Pulse Ox 36.5 C 61 16 115/60 95 04/24/17 08:00 04/24/17 08:00 04/24/17 08:00 04/24/17 08:00 04/24/17 08:00 Laboratory Results 04/24/17 05:50 04/24/17 05:50 04/23/17 04/24/17 04/25/17 05:59 05:59 05:59 Intake Total 900 1500 Balance 900 1500 Physical Exam - Physical Exam General Appearance: no apparent distress EENT: pharynx normal Respiratory: lungs clear Cardiac/Chest: regular rate, rhythm Abdomen: soft Skin: other (PICC on right ok) ICD10 Worksheet Patient Problems: Problems Problem Status Onset AML (acute myeloblastic leukemia) Acute Neutropenic colitis Acute Thrombocytopenia due to diminished platelet production Acute
--- NOTE | 2017-04-24 14:11 | HOSPPROG ---
Hospitalist Progress Note Assessment/Plan: 66-year-old with relapsed AML is admitted for chemotherapy, he has completed chemotherapy however will need to monitor for likely need for transfusion for expected alex next week # Relapsed AML with normal cyto; previous FLT3-, NPM1+ (current results pending ): Day 8 of 7+3 (total Yaritza 72 mg/m2). * Doing well and pancytopenic as expected * If no issues next week, do not recommend day 14 marrow and rather repeat after recovery (limited ability to give more Yaritza) * Continue prophylactic levofloxacin and valacyclovir * Plan is to get into remission then go for allogeneic transplant # Pancytopenia * Irradiate and leukoreduce all products * transfuse for plt<10,000 * transfuse for Hgb<6.5 g/dL # history of neutropenic enterocolitis # history of Cuevas's esophagitis continue PPI # nausea controlled on scheduled antiemetics, eating well. # DVT prophylaxis, patient ambulating chemical prophylaxis contraindicated due to thrombocytopenia Subjective: No complaints today. No nausea vomiting no diarrhea. Eating well. No chest pain shortness of breath. No rash. Objective: Vital Signs Temp Pulse Resp BP Pulse Ox 36.5 C 61 16 115/60 95 04/24/17 08:00 04/24/17 08:00 04/24/17 08:00 04/24/17 08:00 04/24/17 08:00 Laboratory Results 04/24/17 05:50 04/24/17 05:50 04/23/17 04/24/17 04/25/17 05:59 05:59 05:59 Intake Total 900 1500 Balance 900 1500 - Physical Exam Constitutional: no apparent distress Cardiovascular: regular rate and rhythym Respiratory: no respiratory distress, clear to auscultation ICD10 Worksheet Patient Problems: Problems Problem Status Onset AML (acute myeloblastic leukemia) Acute Neutropenic colitis Acute Thrombocytopenia due to diminished platelet production Acute
[2017-04-25 06:27] LABS: PLATELET COUNT 6 10^3/uL (150-400)
--- NOTE | 2017-04-25 08:11 | SOAPPROG ---
SOAP Progress Note Assessment/Plan: Assessment: 1) Relapsed AML day 10 re-induction (Idarubicin/Sahra-C) 2) Pancytopenia secondary to #1 Plan: Overall doing well. Remains afebrile. Will continue prophylactic Levaquin and Acyclovir. No evidence of active infection. Will transfuse 1 unit irradiated platelets today. Transfusion d/w patient. He consents. Plan d/c home once counts recover (likely next week) Plan d/w patient. His questions were answered. 04/25/17 08:08 Subjective: Feels well. No fever. Denies bleeding / bruising Objective: Vital Signs Temp Pulse Resp BP Pulse Ox 37 C 64 16 110/70 93 04/25/17 06:10 04/25/17 06:10 04/25/17 06:10 04/25/17 06:10 04/25/17 06:10 Laboratory Results 04/25/17 06:10 04/25/17 06:10 04/24/17 04/25/17 04/26/17 05:59 05:59 05:59 Intake Total 1500 1150 Balance 1500 1150 - Time Spent With Patient Time Spent With Patient: 25 minutes Physical Exam - Physical Exam General Appearance: alert, no apparent distress EENT: PERRL/EOMI Respiratory: lungs clear Cardiac/Chest: regular rate, rhythm Abdomen: normal bowel sounds, non-tender, soft Skin: normal color Extremities: other (PICC site without tenderness or warmth) Neuro/Psych: alert, normal mood/affect, oriented x 3 ICD10 Worksheet Patient Problems: Problems Problem Status Onset AML (acute myeloblastic leukemia) Acute Neutropenic colitis Acute Thrombocytopenia due to diminished platelet production Acute
[2017-04-25] MEDS: valACYclovir 500 MG TAB PO SCH (09:41)
[2017-04-25] MEDS: ACETAMINOPHEN 325 MG TAB PO PRN (09:41)
[2017-04-25] MEDS: PANTOPRAZOLE SODIUM 40 MG TAB PO SCH (09:41)
--- NOTE | 2017-04-25 13:18 | HOSPPROG ---
Hospitalist Progress Note Assessment/Plan: 66-year-old with relapsed AML is admitted for chemotherapy, he has completed chemotherapy however will need to monitor for likely need for transfusion for expected alex next week # Relapsed AML with normal cyto; previous FLT3-, NPM1+ (current results pending ): Day 8 of 7+3 (total Yaritza 72 mg/m2). * Doing well and pancytopenic as expected * If no issues next week, do not recommend day 14 marrow and rather repeat after recovery (limited ability to give more Yaritza) * Continue prophylactic levofloxacin and valacyclovir * Plan is to get into remission then go for allogeneic transplant # Pancytopenia * Irradiate and leukoreduce all products * transfuse for plt<10,000, will require transfusion today, no evidence of bleeding * transfuse for Hgb<6.5 g/dL # history of neutropenic enterocolitis # history of Cuevas's esophagitis continue PPI # nausea controlled on scheduled antiemetics, eating well. # DVT prophylaxis, patient ambulating chemical prophylaxis contraindicated due to thrombocytopenia Subjective: Doing well. No evidence of bleeding Objective: Vital Signs Temp Pulse Resp BP Pulse Ox 36.8 C 66 18 100/58 L 93 04/25/17 10:29 04/25/17 10:29 04/25/17 10:29 04/25/17 10:29 04/25/17 10:29 Laboratory Results 04/25/17 06:10 04/25/17 06:10 04/24/17 04/25/17 04/26/17 05:59 05:59 05:59 Intake Total 1500 1150 Balance 1500 1150 - Physical Exam Constitutional: no apparent distress Cardiovascular: regular rate and rhythym Respiratory: no respiratory distress, clear to auscultation ICD10 Worksheet Patient Problems: Problems Problem Status Onset AML (acute myeloblastic leukemia) Acute Neutropenic colitis Acute Thrombocytopenia due to diminished platelet production Acute
--- NOTE | 2017-04-25 16:34 | ASMTCMCOM ---
CM Note CM Note Notes: Met with patient who is doing well, up in halls walking. Plan is to [facility] in near future for BM transplant. He currently has a PICC line in place, if he discharged with IV line will need home infusion services. CM to follow. Date Signed: 04/25/2017 04:33 PM Electronically Signed By:Carey Ramos RN
[2017-04-26 07:05] LABS: PLATELET COUNT 12 10^3/uL (150-400)
[2017-04-26] MEDS: PANTOPRAZOLE SODIUM 40 MG TAB PO SCH (09:26)
[2017-04-26] MEDS: valACYclovir 500 MG TAB PO SCH (09:26)
--- NOTE | 2017-04-26 09:35 | HOSPPROG ---
Hospitalist Progress Note Assessment/Plan: 66-year-old with relapsed AML is admitted for chemotherapy, he has completed chemotherapy however will need to monitor for likely need for transfusion for expected alex next week # Relapsed AML with normal cyto; previous FLT3-, NPM1+ (current results pending ): Day 8 of 7+3 (total Yaritza 72 mg/m2). * Doing well and pancytopenic as expected * Continue prophylactic levofloxacin and valacyclovir * Plan is to get into remission then go for allogeneic transplant # Pancytopenia. Had a sneezing fit last night and remembers rubbing eye. not sure if either of those caused blood vessels to burst in left eye. No other symptoms. * Irradiate and leukoreduce all products * transfuse for plt<10,000, Had transfusion yesterday with minimal improvement , ptls now 12 * transfuse for Hgb<6.5 g/dL # history of neutropenic enterocolitis # history of Cuevas's esophagitis continue PPI # nausea controlled on scheduled antiemetics, eating well. # DVT prophylaxis, patient ambulating chemical prophylaxis contraindicated due to thrombocytopenia Subjective: No headache no change in vision no other bleeding noted per patient. Feels good otherwise Objective: Vital Signs Temp Pulse Resp BP Pulse Ox 37.1 C 72 18 114/60 97 04/26/17 08:37 04/26/17 08:37 04/26/17 08:37 04/26/17 08:37 04/26/17 08:37 Laboratory Results 04/26/17 06:05 04/26/17 06:05 04/25/17 04/26/17 04/27/17 05:59 05:59 05:59 Intake Total 1150 1200 Balance 1150 1200 - Physical Exam Constitutional: no apparent distress Eyes: PERRL, scleral injection (left) Ears, Nose, Mouth, Throat: moist mucous membranes Cardiovascular: regular rate and rhythym, no murmur, rub, or gallop Respiratory: no respiratory distress Skin: warm Musculoskeletal: full muscle strength Neurologic: AAOx3 Psychiatric: interacting appropriately, not anxious ICD10 Worksheet Patient Problems: Problems Problem Status Onset AML (acute myeloblastic leukemia) Acute Neutropenic colitis Acute Thrombocytopenia due to diminished platelet production Acute
--- NOTE | 2017-04-26 10:39 | SOAPPROG ---
SOAP Progress Note Assessment/Plan: Assessment: 1) Relapsed AML day 10 re-induction (Idarubicin/Sahra-C) 2) Pancytopenia secondary to #1 3) Left conjunctival hemorrhage Plan: Overall doing well. Remains afebrile. Will continue prophylactic Levaquin and Acyclovir. No evidence of active infection. Received 1 unit of platelets yesterday. No indication for transfusion today. Conjunctival hemorrhage is asymptomatic. Plan d/c home once counts recover (likely next week). No day 14 marrow planned. Plan d/w patient. His questions were answered. Subjective: Developed Left conjunctival hemorrhage yesterday evening after sneezing. Denies visual changes. No other area of bleeding. Received platelets yesterday. Objective: Vital Signs Temp Pulse Resp BP Pulse Ox 37.1 C 72 18 114/60 97 04/26/17 08:37 04/26/17 08:37 04/26/17 08:37 04/26/17 08:37 04/26/17 08:37 Laboratory Results 04/26/17 06:05 04/26/17 06:05 04/25/17 04/26/17 04/27/17 05:59 05:59 05:59 Intake Total 1150 1200 Balance 1150 1200 - Time Spent With Patient Time Spent With Patient: 20 minutes Physical Exam - Physical Exam General Appearance: alert, no apparent distress EENT: other (Left conjunctival hemorrhage) Respiratory: lungs clear Cardiac/Chest: regular rate, rhythm Abdomen: non-tender, soft Neuro/Psych: alert, normal mood/affect ICD10 Worksheet Patient Problems: Problems Problem Status Onset AML (acute myeloblastic leukemia) Acute Neutropenic colitis Acute Thrombocytopenia due to diminished platelet production Acute
[2017-04-26] MEDS: ACETAMINOPHEN 325 MG TAB PO PRN ×2 (15:58→20:37)
[2017-04-26] MEDS: CEFEPIME HCL 2 GM in STERILE WATER INJ 12.5 ML IV SCH ×2 (18:37→23:45)
[2017-04-26] MEDS: VANCOMYCIN 1.5 GM in NS 250 ML IV SCH (18:39)
[2017-04-27] MEDS: ACETAMINOPHEN 325 MG TAB PO PRN (02:46)
[2017-04-27] MEDS ORDERED: ACETAMINOPHEN 325 MG TAB PO ONE (04:00)
[2017-04-27 06:01] LABS: PLATELET COUNT 6 10^3/uL (150-400)
[2017-04-27] MEDS: VANCOMYCIN 1.5 GM in NS 250 ML IV SCH ×2 (06:40→17:45)
[2017-04-27] MEDS: CEFEPIME HCL 2 GM in STERILE WATER INJ 12.5 ML IV SCH ×3 (06:40→22:15)
[2017-04-27] MEDS: valACYclovir 500 MG TAB PO SCH (09:23)
[2017-04-27] MEDS: PANTOPRAZOLE SODIUM 40 MG TAB PO SCH (09:23)
--- NOTE | 2017-04-27 10:19 | HOSPPROG ---
Hospitalist Progress Note Assessment/Plan: # neutropenic fever - d/t strep bacteremia # strep bacteremia - possible source dental? - ID consult today - cont vanc/cefepime (taper per ID) - check echo, repeat cx tomorrow; will need PICC changed # elevated indirect bili - likely Clifford, has been elevated before # relapsed AML, day 11 of re-induction # pancytopenia d/t chemo - transfusions per onc # history of neutropenic enterocolitis # history of Cuevas's esophagitis - PPI Subjective: fever last night Objective: Vital Signs Temp Pulse Resp BP Pulse Ox 38.1 C 88 17 122/64 H 93 04/27/17 07:39 04/27/17 07:39 04/27/17 07:39 04/27/17 07:39 04/27/17 07:39 Microbiology 04/26/17 18:20 Blood Panel (PCR) - Final Blood Streptococcus Laboratory Results 04/27/17 05:30 04/27/17 05:30 04/26/17 04/27/17 04/28/17 05:59 05:59 05:59 Intake Total 1200 2000 Balance 1200 2000 - Physical Exam Constitutional: no apparent distress, appears nourished Ears, Nose, Mouth, Throat: other (no significant dental caries; +scleral hemorrhage) Cardiovascular: regular rate and rhythym, no murmur, rub, or gallop Respiratory: no respiratory distress, no rales or rhonchi Gastrointestinal: normoactive bowel sounds, soft, non-tender abdomen Skin: warm, normal color Musculoskeletal: other (no splinter hemorrhages, janeway lesions) ICD10 Worksheet Patient Problems: Problems Problem Status Onset AML (acute myeloblastic leukemia) Acute Neutropenic colitis Acute Thrombocytopenia due to diminished platelet production Acute
[2017-04-27] MEDS: ACETAMINOPHEN 500 MG TAB PO PRN ×3 (10:36→22:26)
--- NOTE | 2017-04-27 14:13 | SOAPPROG ---
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 He has positive blood cultures. He has been started on Abx ( Cefepime and Vancomycin ). I will go ahead and stop the Levaquin. ID consult pending. No clear source of infection. He did have a recent dental cleaning. Will keep PICC in for now, with plan to change PICC once blood cultures have cleared. It is not overtly infected on exam. Platelet transfusion given today. Conjunctival hemorrhage stable. Eventual plan for allo SCT. Case d/w nursing and Dr. Zacarias. Patient's questions answered. Subjective: Developed fever overnight. Abx have been started. He feels somewhat better this morning. Denies rigors, Denies CP/SOB/Nausea. Denies per-rectal pain. Objective: Vital Signs Temp Pulse Resp BP Pulse Ox 37.8 C 96 14 110/58 L 92 04/27/17 12:26 04/27/17 11:04 04/27/17 11:04 04/27/17 11:04 04/27/17 11:04 Microbiology 04/26/17 18:20 Blood Panel (PCR) - Final Blood Streptococcus Laboratory Results 04/27/17 05:30 04/27/17 05:30 04/26/17 04/27/17 04/28/17 05:59 05:59 05:59 Intake Total 1200 2000 Balance 1200 2000 - Time Spent With Patient Time Spent With Patient: 25 minutes Physical Exam - Physical Exam General Appearance: alert, no apparent distress EENT: other (Left conjunctival hemorrhage stable.) Respiratory: lungs clear Cardiac/Chest: regular rate, rhythm Abdomen: non-tender, soft Extremities: other (PICC site in Right UE clean and w/o induration/warmth/ tenderness) Neuro/Psych: alert, normal mood/affect, oriented x 3 ICD10 Worksheet Patient Problems: Problems Problem Status Onset AML (acute myeloblastic leukemia) Acute Neutropenic colitis Acute Thrombocytopenia due to diminished platelet production Acute
[2017-04-27] MEDS: ONDANSETRON 4 MG/2 ML VIAL IVP PRN (17:02)
[2017-04-27] MEDS ORDERED: VANCOMYCIN 1.5 GM in NS 250 ML IV SCH (18:30)
--- NOTE | 2017-04-27 19:00 | GCON ---
[f rep st] CONSULTATION INFECTIOUS DISEASE CONSULTATION. DATE OF CONSULTATION: 04/27/2017 REFERRING PHYSICIAN: Christian Zacarias MD REASON FOR CONSULTATION: Neutropenic fever with streptococcal bacteremia. HISTORY OF PRESENT ILLNESS: Patient is a 66-year-old male with relapsed AML, status post repeat swati ction chemotherapy with idarubicin and Sahra-C, who I am asked to see in consultation for neutropenic f ever with streptococcal bacteremia. Patient was noted to have relapsed AML on routine followup with Dr. Null. This prompted hospital admission for repeat induction chemotherapy in late March. Marylin feliz developed a decrease in white blood cell count with neutropenia dating back to the beginning of April. He subsequently developed fever to 39.4 on 04/26/2017. Blood cultures were obtained, and bot h sets are showing growth of a Streptococcus species which, by PCR testing, has been identified as no t group A, group B, or pneumococcus with formal identification pending. Patient complains of having fever, chills, myalgias, and arthralgias with excessive fatigue and decreased appetite. He did have a routine dental cleaning approximately 10 days prior to hospital admission. He does have an irritat ed area along the cheek on the left side below his upper molar. No other sores in his mouth. He has not experienced headache, nausea, vomiting, diarrhea, sore throat, cough, or shortness of breath. N o urinary symptoms. No skin rash. He has a PICC line in the right upper extremity without pain, harman ma, or drainage. Based on his neutropenic fever, patient was started empirically on vancomycin and c efepime. There is no recent travel. No animal exposure. Given the above findings, I am now asked t o assist in his ongoing management. PAST MEDICAL HISTORY: Neutropenic enterocolitis with chemotherapy in 2016, AML as outlined above, hi story of remote melanoma. PAST SURGICAL HISTORY: Bilateral knee replacement, lipoma resection. CURRENT MEDICATIONS: Vancomycin 1.5 g IV q.12 hours, cefepime 2 g IV q.8 hours, Tylenol as needed, P rotonix 40 mg orally daily, Halcion as needed for insomnia, Valtrex 1 g p.o. daily. ALLERGIES: Tetracycline associated with rash. SOCIAL HISTORY: Patient does not smoke or drink alcohol. He used to work as an emergency department nurse. No travel other than [place] last year. FAMILY HISTORY: Parent with renal cell carcinoma. REVIEW OF SYSTEMS: Outside that noted in the HPI, the remainder of 10 system review is unremarkable. Patient has developed conjunctival hemorrhage on the left. PHYSICAL EXAMINATION: VITAL SIGNS: Temperature maximum 39.4, heart rate 91, respiratory rate 15, bl ood pressure 128/66, oxygen saturation 96% on room air. GENERAL: Patient is well nourished and well developed, in no acute distress. He appears nontoxic. HEENT: There is no scleral icterus or conju nctival petechiae. There is subconjunctival hemorrhage on the left eye. Oropharynx shows slight irr itation below the upper posterior molar on the left without vanessa ulceration; no thrush or other oral ulcers are noted. There is no nasal discharge. There is no tenderness over the sinuses. NECK: Frias pple without palpable lymphadenopathy or thyromegaly. CHEST: Clear to auscultation bilaterally with out adventitious sounds. The respiratory effort is normal. CARDIOVASCULAR: Regular rate and rhythm without murmurs, gallops, or rubs. ABDOMEN: Soft, nontender, nondistended. There is no palpable o rganomegaly. Bowel sounds are present. MUSCULOSKELETAL: No cyanosis, clubbing, or edema. SKIN: N o rashes present. No stigmata of endocarditis. Skin is diffusely warm to palpation. NEUROLOGIC: P atient is alert and interacts appropriately with examiner. Cranial nerves 2-12 grossly intact. Sens ation is grossly intact. Muscle tone and bulk are normal. LYMPHATICS: No cervical or supraclavicul ar nodes palpable. LABORATORY DATA: White blood cell count 0.23, hematocrit 26.9, platelets 6, absolute neutrophil coun t 0, serum creatinine 0.8, AST 11, ALT 26, bilirubin 3.6 (unconjugated 3.2), albumin 3.1. Urinalysis is negative. Blood cultures x2 sets showing growth of Streptococcus species which by PCR identifica tion is not group A, B, or Streptococcus pneumoniae; formal identification is currently pending. Chest x-ray shows no focal infiltrate. IMPRESSION: 1. Neutropenic fever with streptococcal bacteremia: Most likely, this will be an oropharyngeal stre ptococcal species. Patient did have recent dental cleaning, although this may be unrelated to curren t findings. Bacteremia may be associated with profound neutropenia as primary risk factor for strept ococcal bacteremia. Will continue vancomycin and cefepime in short term; some oropharyngeal streptoc occi have been beta-lactam resistant in patients receiving chemotherapy. Likely will be able to tabor sition to more narrow spectrum regimen based on susceptibilities as available. Agree with plans for echocardiogram. 2. Increased indirect bilirubin: This has been present previously and unlikely associated with curr ent infectious process. 3. Left subconjunctival hemorrhage. RECOMMENDATIONS: 1. Agree with continued vancomycin and cefepime. 2. Agree with echocardiogram. 3. Await formal identification and susceptibility of streptococcus. 4. Repeat blood cultures to assess for clearing of bacteremia. 5. Await recovery of neutrophils which will be critical for decreasing risk of ongoing and recurrent infection. Thank you for this consultation. We will continue to follow the patient with you. /[id number]/MODL
[2017-04-28] MEDS: ACETAMINOPHEN 500 MG TAB PO PRN ×4 (04:32→22:32)
[2017-04-28] MEDS: CEFEPIME HCL 2 GM in STERILE WATER INJ 12.5 ML IV SCH ×3 (05:06→22:32)
[2017-04-28 05:59] LABS: PLATELET COUNT 27 10^3/uL (150-400)
[2017-04-28] MEDS: VANCOMYCIN 1.5 GM in NS 250 ML IV SCH ×2 (06:26→20:51)
--- NOTE | 2017-04-28 09:22 | SOAPPROG ---
SOAP Progress Note Assessment/Plan: Assessment: 1) Relapsed AML day 12 re-induction (Idarubicin/Sahra-C) 2) Pancytopenia secondary to #1 3) Left conjunctival hemorrhage 4) Neutropenic fever 5) Blood cultures positive for streptococcus (likely Viridans) Plan: Patient developed neutropenic fever on 04/27. He has positive blood cultures with Step Viridans. He has been started on Abx ( Cefepime and Vancomycin ). No clear source of infection. He did have a recent dental cleaning. Will keep PICC in for now, with plan to change PICC once blood cultures have cleared. It is not overtly infected on exam. Platelet transfusion given yesterdat with good response. No indication for transfusion today. Conjunctival hemorrhage stable. Monocytosis likely heralds beginning of bone marrow recovery Eventual plan for allo SCT. Case d/w nursing and Dr. Zacarias. Patient's questions answered. Subjective: Feels well. Fever curve improved. Good response to platelet transfusion yesterday. Objective: Vital Signs Temp Pulse Resp BP Pulse Ox 36.6 C 75 16 116/74 97 04/28/17 07:52 04/28/17 07:52 04/28/17 07:52 04/28/17 07:52 04/28/17 07:52 Microbiology 04/26/17 18:20 Blood Panel (PCR) - Final Blood Streptococcus Laboratory Results 04/28/17 05:00 04/28/17 05:00 04/27/17 04/28/17 04/29/17 05:59 05:59 05:59 Intake Total 1999 2099 Balance 1999 2099 - Time Spent With Patient Time Spent With Patient: 25 minutes Physical Exam - Physical Exam General Appearance: alert, no apparent distress EENT: PERRL/EOMI, other (Left conjunctival hemorrhage stable.) Respiratory: lungs clear Cardiac/Chest: regular rate, rhythm Abdomen: non-tender Extremities: other (PICC Site claen and without induration or swelling) Neuro/Psych: normal mood/affect ICD10 Worksheet Patient Problems: Problems Problem Status Onset AML (acute myeloblastic leukemia) Acute Neutropenic colitis Acute Thrombocytopenia due to diminished platelet production Acute
[2017-04-28] MEDS: PANTOPRAZOLE SODIUM 40 MG TAB PO SCH (09:37)
[2017-04-28] MEDS: valACYclovir 500 MG TAB PO SCH (09:41)
--- NOTE | 2017-04-28 11:14 | HOSPPROG ---
Hospitalist Progress Note Assessment/Plan: # neutropenic fever - d/t strep bacteremia # strep bacteremia - possible source dental? 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 - PPI Subjective: ongoing fevers - not as high as yesterday; seen with his Objective: Vital Signs Temp Pulse Resp BP Pulse Ox 36.6 C 75 16 116/74 97 04/28/17 07:52 04/28/17 07:52 04/28/17 07:52 04/28/17 07:52 04/28/17 07:52 Microbiology 04/26/17 18:20 Blood Panel (PCR) - Final Blood Streptococcus Laboratory Results 04/28/17 05:00 04/28/17 05:00 04/27/17 04/28/17 04/29/17 05:59 05:59 05:59 Intake Total 1999 2099 Balance 1999 2099 - Physical Exam Constitutional: uncomfortable Cardiovascular: regular rate and rhythym, no murmur, rub, or gallop Respiratory: no respiratory distress, no rales or rhonchi Gastrointestinal: soft, non-tender abdomen, no palpable masses ICD10 Worksheet Patient Problems: Problems Problem Status Onset AML (acute myeloblastic leukemia) Acute Neutropenic colitis Acute Thrombocytopenia due to diminished platelet production Acute
[2017-04-28] MEDS ORDERED: ALTEPLASE 2 MG VIAL IVP ONE ×2 (12:30→18:00)
--- NOTE | 2017-04-28 15:05 | ECHO ---
[email or web address] [place] [id number] Main: [phone] Fax: Transthoracic Echocardiogram Name: LAITH MENDEZ MR#: [id number] Study Date: 04/28/2017 Study Time: 12:01 PM Date of : 1950 Age: 66 year(s) Height: 190.5 cm (75 in.) Weight: ( ) BSA: Gender: Male Examination: Limited Echo Indication: Fever unknown origin Image Quality: Contrast: Requested by: Francisco Javier Ojeda BP: 120 mmHg/60 mmHg Heart Rate: Rhythm: Indication: Fever unknown origin Procedure Staff Air Conditioner Installer Helper: Amy Felipe [facility] Reading Physician: Jose Alejandro Burgess MD Requesting Provider: Conclusions: Normal size left ventricle. Normal global systolic LV function. The ejection fraction is visually estimated to be 60 %. There is no mitral valve vegetation. There is no aortic valve vegetation. No tricuspid valve vegetation. There is no pulmonary valve vegetation. Measurements: Chambers Valvular Assessment AV/MV Valvular Assessment TV/PV Normal Normal Normal Name Value Range Name Value Range Name Value Range Visual EF: 60 % Continued Measurements: Findings: Left Ventricle: Normal size left ventricle. Normal global systolic LV function. The ejection fraction is visually estimated to be 60 %. No regional wall motion abnormality. Mitral Valve: There is no mitral valve vegetation. Aortic Valve: There is no aortic valve vegetation. Tricuspid Valve: No tricuspid valve vegetation. Pulmonic Valve: There is no pulmonary valve vegetation. Patient: LAITH MENDEZ Study Date: 04/28/2017 Page 1 of 2 12:01 PM Pericardium: There is pericardial fat. (No Signature Object) Patient: LAITH MENDEZ Study Date: 04/28/2017 Page 2 of 2 12:01 PM [id number]
--- NOTE | 2017-04-28 18:15 | PCMIDPN ---
Assessment/Plan: Assessment/Plan: * Neutropenic fever with Streptococcus mitis/oralis bacteremia: Persistent fever and neutropenia although feels improved clinically. Will continue vancomycin and cefepime today pending maturation of cultures. Suspect will be able to narrow antibiotic therapy based on susceptibility profile of Streptococcus tomorrow. Repeat blood cultures are pending to assess for clearing of bacteremia. 04/28/17 18:12 Subjective: Patient feels better today and was able to sit on patio. No change in irritation along left upper cheek mucosal surface. Objective: Vital Signs Temp Pulse Resp BP Pulse Ox 38.8 C H 83 16 112/60 95 04/28/17 17:21 04/28/17 15:18 04/28/17 15:18 04/28/17 15:18 04/28/17 15:18 Microbiology 04/26/17 18:20 Blood Panel (PCR) - Final Blood Streptococcus Laboratory Results 04/28/17 05:00 04/28/17 05:00 04/27/17 04/28/17 04/29/17 05:59 05:59 05:59 Intake Total 1999 2100 700 Balance 1999 2100 700 Vancomycin # 2 Cefepime # 2 Blood cultures 2/2 Streptococcus mitis/oralis Transthoracic echocardiogram without evidence of vegetation Laboratory Tests 04/28/17 05:00 Vancomycin Trough 9.2 - Physical Exam General Appearance: alert, no apparent distress EENT: other (Small erythematous patch adjacent to posterior molar on upper bridge on left without vanessa ulceration), No thrush, No conjunctival petechiae Respiratory: lungs clear, No respiratory distress Cardiac/Chest: regular rate, rhythm, No systolic murmur Extremities: No inflammation Abdomen: non-tender, No distended Skin: No embolic lesions - Line/s RUE PICC Lines: No drainage, No erythema ICD10 Worksheet Patient Problems: Problems Problem Status Onset AML (acute myeloblastic leukemia) Acute Neutropenic colitis Acute Thrombocytopenia due to diminished platelet production Acute
[2017-04-28] MEDS: ONDANSETRON 4 MG/2 ML VIAL IVP PRN (22:32)
[2017-04-29] MEDS: ACETAMINOPHEN 500 MG TAB PO PRN ×3 (05:32→21:16)
[2017-04-29] MEDS: CEFEPIME HCL 2 GM in STERILE WATER INJ 12.5 ML IV SCH ×3 (05:33→21:15)
[2017-04-29 06:18] LABS: PLATELET COUNT 16 10^3/uL (150-400)
[2017-04-29] MEDS: VANCOMYCIN 1.5 GM in NS 250 ML IV SCH (06:20)
[2017-04-29] MEDS: PANTOPRAZOLE SODIUM 40 MG TAB PO SCH (09:47)
[2017-04-29] MEDS: valACYclovir 500 MG TAB PO SCH (09:47)
--- NOTE | 2017-04-29 10:56 | PCMIDPN ---
Assessment/Plan: 1. Fever/neutropenia with strep oralis bacteremia: Admittedly, I am bothered by his persistent fevers on round the clock Tylenol. That being said, the patient looks well, and is starting to feel better. Will discontinue vancomycin given resistance profile of the viridans strep, and continue cefepime as is with pseudomonal dosing given neutropenia. After long conversation with patient, and obtaining the history of his tooth issue with his lower 2nd molar on the right, if he remains febrile would obtain facial CT to further evaluate this area. The patient has nonspecific discomfort in this area that is not particularly bothersome and has been present for quite some time. Hold off on anti fungal coverage for now. Repeat blood cultures so far are sterile. Transthoracic echocardiogram negative. Would not pursue JAIDA given lack of sustained bacteremia. Subjective: Patient continues to spike fevers up to 39.2. Denies rigors, but feels unwell when he has these fevers. Is spiking through round the clock Tylenol. Long conversation with patient today about the history of his lower right molar. He states that he has a discomfort in this area that is nonspecific, but is not particularly bothersome to him overall. He denies any significant discomfort at rest, but occasionally when he chews he can feel something that is"not right. "Denies nausea, vomiting, diarrhea, cough, abdominal pain, burning with urination, skin lesions. Mild headache. Objective: Vancomycin day 3 Cefepime 2 g IV q.8 hours day 3 T-max 39.2 degrees Vital Signs Temp Pulse Resp BP Pulse Ox 37.2 C 69 17 110/50 L 95 04/29/17 08:46 04/29/17 08:46 04/29/17 08:46 04/29/17 08:46 04/29/17 08:46 Microbiology 04/26/17 18:20 Blood Culture - Final Blood Streptococcus Mitis/Oralis Blood Panel (PCR) - Final Streptococcus 04/26/17 18:15 Blood Culture - Final Blood Streptococcus Mitis/Oralis Laboratory Results 04/29/17 05:45 04/29/17 05:45 04/28/17 04/29/17 04/30/17 05:59 05:59 05:59 Intake Total 2100 1100 700 Balance 2100 1100 700 Blood cultures April 26 x2 with strep Mitis/oralis Blood cultures x2 from April 28 are no growth so far - Physical Exam General Appearance: alert, no apparent distress EENT: other (Conjunctival hemorrhage left eye, looks improved per patient. The patient's 2nd molar lower right has a crown in place. There is no tap tenderness or evidence of apical or periapical abscess. The rest of his mouth looks fine with no oral lesions, thrush, gingival bleeding gingivitis or other.) Respiratory: lungs clear Cardiac/Chest: regular rate, rhythm, other (Distant heart sounds) Extremities: other (PICC line right upper extremity looks fine with no swelling , or tenderness) Abdomen: non-tender, soft, No mass Male Genitalia: normal genitalia Rectal: perirectal area (Perirectal area without evidence of hemorrhoids, erythema, swelling or tenderness.) Skin: No rash ICD10 Worksheet Patient Problems: Problems Problem Status Onset AML (acute myeloblastic leukemia) Acute Neutropenic colitis Acute Thrombocytopenia due to diminished platelet production Acute
--- NOTE | 2017-04-29 11:09 | HOSPPROG ---
Hospitalist Progress Note Assessment/Plan: # neutropenic fever - d/t strep bacteremia - persistent fevers - consider imaging if fevers continue # strep bacteremia - possible source dental? 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 - PPI Subjective: feels better today; still having fevers Objective: Vital Signs Temp Pulse Resp BP Pulse Ox 37.2 C 69 17 110/50 L 95 04/29/17 08:46 04/29/17 08:46 04/29/17 08:46 04/29/17 08:46 04/29/17 08:46 Microbiology 04/26/17 18:20 Blood Culture - Final Blood Streptococcus Mitis/Oralis Blood Panel (PCR) - Final Streptococcus 04/26/17 18:15 Blood Culture - Final Blood Streptococcus Mitis/Oralis Laboratory Results 04/29/17 05:45 04/29/17 05:45 04/28/17 04/29/17 04/30/17 05:59 05:59 05:59 Intake Total 2100 1100 700 Balance 2100 [address] Muñiz echo reviewed - Physical Exam Constitutional: no apparent distress, appears nourished Cardiovascular: regular rate and rhythym, no murmur, rub, or gallop Respiratory: no respiratory distress, no rales or rhonchi Gastrointestinal: normoactive bowel sounds, soft, non-tender abdomen, no palpable masses ICD10 Worksheet Patient Problems: Problems Problem Status Onset AML (acute myeloblastic leukemia) Acute Neutropenic colitis Acute Thrombocytopenia due to diminished platelet production Acute
--- NOTE | 2017-04-29 13:47 | SOAPPROG ---
SOAP Progress Note Assessment/Plan: Assessment: 1) Relapsed AML day 12 re-induction (Idarubicin/Sahra-C) 2) Pancytopenia secondary to #1 3) Left conjunctival hemorrhage 4) Neutropenic fever 5) Blood cultures positive for streptococcus mitas Plan: Patient developed neutropenic fever on 04/27. He has positive blood cultures with Step Mitas. He has been started on Abx ( Initially Cefepime and Vancomycin ). ID has stopped Vancomycin. No clear source of infection. He did have a recent dental cleaning, and has a questionable tooth which is currently not painful. Repeat Blood cultures from yesterday are negative. Will keep PICC in for now, with plan to change PICC once blood cultures have cleared. It is not overtly infected on exam. Platelet transfusion given Tuesday with good response. No indication for transfusion today. Conjunctival hemorrhage stable. Monocytosis likely heralds beginning of bone marrow recovery Eventual plan for allo SCT. Case d/w nursing and Dr. Zacarias. Patient's questions answered. 04/29/17 13:44 Subjective: Continues to have intermittent fevers. Denies CP/cough/abd pain/diarrhea/arturo-rectal pain. Denies tooth pain. Objective: Vital Signs Temp Pulse Resp BP Pulse Ox 37.2 C 76 17 122/56 H 95 04/29/17 11:38 04/29/17 11:38 04/29/17 11:38 04/29/17 11:38 04/29/17 11:38 Microbiology 04/26/17 18:20 Blood Culture - Final Blood Streptococcus Mitis/Oralis Blood Panel (PCR) - Final Streptococcus 04/26/17 18:15 Blood Culture - Final Blood Streptococcus Mitis/Oralis Laboratory Results 04/29/17 05:45 04/29/17 05:45 04/28/17 04/29/17 04/30/17 05:59 05:59 05:59 Intake Total 2100 1100 700 Balance 2100 1100 700 - Time Spent With Patient Time Spent With Patient: 25 minutes Physical Exam - Physical Exam General Appearance: no apparent distress EENT: PERRL/EOMI Respiratory: lungs clear Cardiac/Chest: regular rate, rhythm Abdomen: non-tender, soft Skin: normal color Extremities: other (PICC site clean w/o evidence of infection) Neuro/Psych: normal mood/affect, oriented x 3 ICD10 Worksheet Patient Problems: Problems Problem Status Onset AML (acute myeloblastic leukemia) Acute Neutropenic colitis Acute Thrombocytopenia due to diminished platelet production Acute
[2017-04-30] MEDS: ACETAMINOPHEN 500 MG TAB PO PRN (03:19)
[2017-04-30] MEDS: CEFEPIME HCL 2 GM in STERILE WATER INJ 12.5 ML IV SCH ×3 (06:01→22:02)
[2017-04-30 06:45] LABS: PLATELET COUNT 8 10^3/uL (150-400)
[2017-04-30] MEDS: valACYclovir 500 MG TAB PO SCH (09:29)
[2017-04-30] MEDS: PANTOPRAZOLE SODIUM 40 MG TAB PO SCH (09:29)
[2017-04-30] MEDS ORDERED: ACETAMINOPHEN 325 MG TAB PO ONE (09:34)
--- NOTE | 2017-04-30 10:42 | HOSPPROG ---
Hospitalist Progress Note Assessment/Plan: # neutropenic fever - d/t strep bacteremia - persistent fevers - will consider adding fungal coverage with ID # strep bacteremia - possible source dental? 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 - PPI Subjective: still feels well; fevers last night Objective: Vital Signs Temp Pulse Resp BP Pulse Ox 37.0 C 68 18 92/58 L 95 04/30/17 08:00 04/30/17 08:00 04/30/17 08:00 04/30/17 08:00 04/30/17 08:00 Microbiology 04/26/17 18:20 Blood Culture - Final Blood Streptococcus Mitis/Oralis Blood Panel (PCR) - Final Streptococcus 04/26/17 18:15 Blood Culture - Final Blood Streptococcus Mitis/Oralis Laboratory Results 04/30/17 05:50 04/30/17 05:50 04/29/17 04/30/17 05/01/17 05:59 05:59 06:59 Intake Total 1100 1100 Output Total 3 Balance 1100 1097 high risk with febrile neutropenia - Physical Exam Constitutional: no apparent distress, appears nourished Cardiovascular: regular rate and rhythym, no murmur, rub, or gallop Respiratory: no respiratory distress, no rales or rhonchi Gastrointestinal: normoactive bowel sounds, soft, non-tender abdomen ICD10 Worksheet Patient Problems: Problems Problem Status Onset AML (acute myeloblastic leukemia) Acute Neutropenic colitis Acute Thrombocytopenia due to diminished platelet production Acute
--- NOTE | 2017-04-30 11:30 | SOAPPROG ---
SOAP Progress Note Assessment/Plan: Assessment: 1. 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 2. Febrile neutropenia, persistent x 3 days 3. S imitis bacteremia 4. Pancytopenia Plan: - will transfuse plts and RBCs - consider adding micafungin for anti-fungal Rx given persistent fever. will defer to ID. - continue other abx - await recovery of blood counts 04/30/17 11:31 Subjective: feels well Objective: exam: NAD, nontoxic appearing Lungs CTAB CV RRR no MGR Abd: +BS NT ND Ext: no edema Vital Signs Temp Pulse Resp BP Pulse Ox 37.4 C 78 16 92/58 L 94 04/30/17 11:25 04/30/17 11:25 04/30/17 11:25 04/30/17 08:00 04/30/17 11:25 Microbiology 04/26/17 18:20 Blood Culture - Final Blood Streptococcus Mitis/Oralis Blood Panel (PCR) - Final Streptococcus 04/26/17 18:15 Blood Culture - Final Blood Streptococcus Mitis/Oralis Laboratory Results 04/30/17 05:50 04/30/17 05:50 04/29/17 04/30/17 05/01/17 05:59 05:59 06:59 Intake Total 1100 1100 Output Total 3 Balance 1100 1097 ICD10 Worksheet Patient Problems: Problems Problem Status Onset AML (acute myeloblastic leukemia) Acute Neutropenic colitis Acute Thrombocytopenia due to diminished platelet production Acute
--- NOTE | 2017-04-30 13:43 | PCMIDPN ---
Assessment/Plan: 1. Fever/neutropenia with strep oralis bacteremia: Agree that given persistent fevers, adding Micafungin is prudent today. The patient would rather hold off on a facial CT for now. He denies any increased pain in his tooth, but tells me only that"I can feel it." No evidence of facial cellulitis, apical or periapical abscess, although explained to the patient that signs would be blunted with neutropenia. No diarrhea, perirectal abscess, skin rash or other. Subjective: About to take a walk with his . Adamant that there are no new issues today. Did tell me that his last Tylenol was at 3:00 a.m., and he has not had a fever since then. Denies rigors, abdominal pain, increased tooth pain, headache, nausea vomiting, dysuria, skin lesions or pain with defecation. Objective: Cefepime 2 g IV q.8 hours day for T-max 39 0.5 Vital Signs Temp Pulse Resp BP Pulse Ox 37.4 C 78 16 96/59 L 94 04/30/17 13:17 04/30/17 11:25 04/30/17 11:25 04/30/17 11:25 04/30/17 11:25 Microbiology 04/26/17 18:20 Blood Culture - Final Blood Streptococcus Mitis/Oralis Blood Panel (PCR) - Final Streptococcus 04/26/17 18:15 Blood Culture - Final Blood Streptococcus Mitis/Oralis Laboratory Results 04/30/17 05:50 04/30/17 05:50 04/29/17 04/30/17 05/01/17 05:59 05:59 06:59 Intake Total 1100 1100 Output Total 3 Balance 1100 1097 Repeat blood cultures are pending, previous blood culture showed clearance of strep oralis - Physical Exam General Appearance: alert, no apparent distress EENT: pharynx normal, No thrush Respiratory: lungs clear Cardiac/Chest: regular rate, rhythm Extremities: other (PICC line right upper extremity looks fine. No arm swelling or tenderness.) Abdomen: non-tender, soft Skin: No rash ICD10 Worksheet Patient Problems: Problems Problem Status Onset AML (acute myeloblastic leukemia) Acute Neutropenic colitis Acute Thrombocytopenia due to diminished platelet production Acute
[2017-04-30] MEDS: MICAFUNGIN NA 100 MG in NS 100 ML IV SCH (18:50)
[2017-05-01] MEDS: CEFEPIME HCL 2 GM in STERILE WATER INJ 12.5 ML IV SCH ×3 (06:28→21:23)
--- NOTE | 2017-05-01 09:05 | HOSPPROG ---
Hospitalist Progress Note Assessment/Plan: 66M with relapsed AML here for re-induction chemo. Complicated by strep mitas bacteremia and neutropenic fever. Persistently febrile for days, no fever curve improving. Awaiting marrow recovery. # neutropenic fever - d/t strep mitas bacteremia - empiric micafungin added yesterday with persistent fevers - now improving # strep mitas bacteremia - possible source dental? 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 - PPI Subjective: c/o muscle soreness Objective: Vital Signs Temp Pulse Resp BP Pulse Ox 36.9 C 75 18 110/62 95 05/01/17 07:31 05/01/17 07:31 05/01/17 07:31 05/01/17 07:31 05/01/17 07:31 Laboratory Results 05/01/17 06:00 04/30/17 05/01/17 05/02/17 04:59 05:59 05:59 Intake Total Output Total Balance high risk - Physical Exam Constitutional: no apparent distress, appears nourished Cardiovascular: regular rate and rhythym, no murmur, rub, or gallop Respiratory: no respiratory distress, no rales or rhonchi Gastrointestinal: soft, non-tender abdomen, no palpable masses ICD10 Worksheet Patient Problems: Problems Problem Status Onset AML (acute myeloblastic leukemia) Acute Neutropenic colitis Acute Thrombocytopenia due to diminished platelet production Acute
[2017-05-01 09:27] LABS: PLATELET COUNT 18 10^3/uL (150-400)
[2017-05-01] MEDS: PANTOPRAZOLE SODIUM 40 MG TAB PO SCH (09:34)
[2017-05-01] MEDS: valACYclovir 500 MG TAB PO SCH (09:34)
--- NOTE | 2017-05-01 10:54 | SOAPPROG ---
SOAP Progress Note Assessment/Plan: Assessment: 1. Relapsed AML, day 14 after reinduction with 7+3. 2. Febrile neutropenia, persistent x 3 days 3. S imitis bacteremia 4. Pancytopenia fever resolved w/ addition of micafungin. Plan: - no transfusions needed today - continue current abx - await recovery of blood counts d/w dr arguello Subjective: feeling well today, no complaints. Objective: exam: NAD HEENT no mucositis Lungs CTAB CV RRR no MGR Abd: +BS NT nD Ext: no edema Neuro: a+ox3 skin: no petechie, purpura Vital Signs Temp Pulse Resp BP Pulse Ox 36.9 C 75 18 110/62 95 05/01/17 07:31 05/01/17 07:31 05/01/17 07:31 05/01/17 07:31 05/01/17 07:31 Laboratory Results 05/01/17 06:00 05/01/17 06:00 04/30/17 05/01/17 05/02/17 04:59 05:59 05:59 Intake Total Output Total Balance ICD10 Worksheet Patient Problems: Problems Problem Status Onset AML (acute myeloblastic leukemia) Acute Neutropenic colitis Acute Thrombocytopenia due to diminished platelet production Acute
[2017-05-01] MEDS: MICAFUNGIN NA 100 MG in NS 100 ML IV SCH (14:11)
--- NOTE | 2017-05-01 15:17 | PCMIDPN ---
Assessment/Plan: 1. Fever/neutropenia with strep oralis bacteremia: Fever curve trending down! Continue Micafungin and cefepime as is. Await recovery of counts, at which time can peel back antibiotics with discontinuation of Micafungin, and transition to ceftriaxone once daily for viridans strep bacteremia. This was all explained to the patient today, as he asked me the plan in detail moving forward. 05/01/17 15:15 Subjective: Fever curve trending down! Appetite excellent. Objective: Cefepime 2 g IV q.8 hours day 5 Micafungin 100 mg IV daily day 2 T-max 37.8 degrees Vital Signs Temp Pulse Resp BP Pulse Ox 37.0 C 77 18 108/56 L 95 05/01/17 12:27 05/01/17 12:27 05/01/17 12:27 05/01/17 12:27 05/01/17 12:27 Laboratory Results 05/01/17 06:00 05/01/17 06:00 04/30/17 05/01/17 05/02/17 04:59 05:59 05:59 Intake Total Output Total Balance No new microbiology - Physical Exam General Appearance: alert, no apparent distress EENT: pharynx normal, No scleral icterus, No thrush Respiratory: lungs clear Cardiac/Chest: regular rate, rhythm Extremities: other (PICC line right upper extremity is fine.) Abdomen: non-tender, soft Skin: other (Some ecchymoses over his arms) ICD10 Worksheet Patient Problems: Problems Problem Status Onset AML (acute myeloblastic leukemia) Acute Neutropenic colitis Acute Thrombocytopenia due to diminished platelet production Acute
[2017-05-02 05:45] LABS: PLATELET COUNT 20 10^3/uL (150-400)
[2017-05-02] MEDS: CEFEPIME HCL 2 GM in STERILE WATER INJ 12.5 ML IV SCH ×3 (05:53→21:49)
[2017-05-02] MEDS: MICAFUNGIN NA 100 MG in NS 100 ML IV SCH (09:49)
[2017-05-02] MEDS: PANTOPRAZOLE SODIUM 40 MG TAB PO SCH (09:49)
[2017-05-02] MEDS: valACYclovir 500 MG TAB PO SCH (09:49)
--- NOTE | 2017-05-02 11:54 | SOAPPROG ---
SOAP Progress Note Assessment/Plan: Assessment: 1. Relapsed AML, day 15 after reinduction with 7+3. 2. Febrile neutropenia, persistent x 3 days 3. S imitis bacteremia 4. Pancytopenia fever resolved w/ addition of micafungin. Plan: - no transfusions needed today - continue current abx - await recovery of blood counts Subjective: feels well. bored. Objective: exam: NAD HEENT no mucositis Lungs CTAB CV RRR no mGR Abd: +BS NT ND Ext: no edema Neuro: a+ox3 skin; no petechie, purpura Vital Signs Temp Pulse Resp BP Pulse Ox 37.3 C 77 16 98/58 L 95 05/02/17 08:00 05/02/17 08:00 05/02/17 08:00 05/02/17 08:00 05/02/17 08:00 Laboratory Results 05/02/17 05:00 05/02/17 05:00 05/01/17 05/02/17 05/03/17 05:59 05:59 05:59 Intake Total 400 Output Total Balance 400 ICD10 Worksheet Patient Problems: Problems Problem Status Onset AML (acute myeloblastic leukemia) Acute Neutropenic colitis Acute Thrombocytopenia due to diminished platelet production Acute
--- NOTE | 2017-05-02 13:35 | HOSPPROG ---
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 Has had a BM daily. Son coming to town soon, so anxious to discharge. Objective: Vital Signs Temp Pulse Resp BP Pulse Ox 98.6 F 70 16 104/54 L 97 05/02/17 11:57 05/02/17 11:57 05/02/17 11:57 05/02/17 11:57 05/02/17 11:57 Laboratory Results 05/02/17 05:00 05/02/17 05:00 05/01/17 05/02/17 05/03/17 11:59 11:59 11:59 Intake Total 400 Output Total Balance 400 - Time Spent With Patient Time Spent with Patient: greater than 35 minutes Time Spent with Patient: Greater than 35 minutes spent on this patients care, greater than 50% of time spent counseling, educating, and coordinating care regarding the above mentioned plan. - Physical Exam Constitutional: no apparent distress, appears nourished, not in pain Eyes: anicteric sclera, EOMI Ears, Nose, Mouth, Throat: moist mucous membranes, hearing normal Cardiovascular: regular rate and rhythym, No edema Respiratory: no respiratory distress, no rales or rhonchi, clear to auscultation Gastrointestinal: normoactive bowel sounds Skin: warm Psychiatric: interacting appropriately, not anxious, not encephalopathic, thought process linear ICD10 Worksheet Patient Problems: Problems Problem Status Onset AML (acute myeloblastic leukemia) Acute Neutropenic colitis Acute Thrombocytopenia due to diminished platelet production Acute
--- NOTE | 2017-05-02 14:23 | ASMTCMCOM ---
CM Note CM Note Notes: Pt continuing on ABX, day 15 of reinduction chemo. Still with fever/neutropenia, waiting for recovery of marrow counts. 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 Date Signed: 05/02/2017 02:22 PM Electronically Signed By:ETHAN Sierra
--- NOTE | 2017-05-02 17:22 | PCMIDPN ---
Assessment/Plan: Assessment/Plan: * Neutropenic fever with Streptococcus mitis/oralis bacteremia: Fever now resolved with ongoing treatment of bacteremia and addition of micafungin over weekend (added for persistent fever). Remains neutropenic although overall white blood cell count is higher. Continue cefepime and micafungin. Repeat blood culture show clearing of bacteremia. Tolerating antibiotic therapy well. 05/02/17 17:19 Subjective: Patient without specific complaints. No rash or diarrhea. Objective: Vital Signs Temp Pulse Resp BP Pulse Ox 37.1 C 72 14 108/62 93 05/02/17 15:39 05/02/17 15:39 05/02/17 15:39 05/02/17 15:39 05/02/17 15:39 Laboratory Results 05/02/17 05:00 05/02/17 05:00 05/01/17 05/02/17 05/03/17 05:59 05:59 05:59 Intake Total 400 Output Total Balance 400 Cefepime # 6 Micafungin # 3 Tm 37.8 - Physical Exam General Appearance: alert, no apparent distress EENT: other (No oral ulcers), No scleral icterus, No thrush Respiratory: lungs clear, No respiratory distress Cardiac/Chest: regular rate, rhythm, No systolic murmur Extremities: No inflammation Abdomen: non-tender, No distended Skin: No rash - Line/s RUE PICC Lines: No drainage, No erythema ICD10 Worksheet Patient Problems: Problems Problem Status Onset AML (acute myeloblastic leukemia) Acute Neutropenic colitis Acute Thrombocytopenia due to diminished platelet production Acute
[2017-05-03] MEDS: CEFEPIME HCL 2 GM in STERILE WATER INJ 12.5 ML IV SCH ×3 (05:45→22:19)
[2017-05-03 06:17] LABS: PLATELET COUNT 10 10^3/uL (150-400)
--- NOTE | 2017-05-03 08:13 | SOAPPROG ---
SOAP Progress Note Assessment/Plan: Assessment: 1. Relapsed AML, day 19 (04/17/2017) after reinduction with 7+3. Looks good today. No BM was done to eval effect of therapy. 2. Pancytopenia: TXN today 3. S imitis bacteremia afebrile on cefepime and micafungin Plan: - TXN PRBCs and PLTS - continue current abx - await recovery of blood counts 05/03/17 08:12 05/03/17 08:22 Objective: Vital Signs Temp Pulse Resp BP Pulse Ox 37.2 C 70 14 98/54 L 94 05/03/17 07:10 05/03/17 07:10 05/03/17 07:10 05/03/17 07:10 05/03/17 07:10 Microbiology 04/28/17 05:00 Blood Culture - Final Blood 04/28/17 04:52 Blood Culture - Final Blood Laboratory Results 05/03/17 05:30 05/03/17 05:30 05/02/17 05/03/17 05/04/17 05:59 05:59 05:59 Intake Total 400 1828 Balance 400 1828 He feels well. He is not in pain. No perianal pain. Appetite is good. AAlert Neck neg No mouth ulcers Lungs clear Abd soft nontender Ext neg - Time Spent With Patient Time Spent With Patient: 30 min ICD10 Worksheet Patient Problems: Problems Problem Status Onset AML (acute myeloblastic leukemia) Acute Neutropenic colitis Acute Thrombocytopenia due to diminished platelet production Acute
[2017-05-03] MEDS ORDERED: ACETAMINOPHEN 325 MG TAB PO ONE ×2 (08:18→13:45)
[2017-05-03] MEDS ORDERED: diphenhydrAMINE 25 MG CAP PO ONE ×2 (08:18→13:45)
[2017-05-03] MEDS ORDERED: FUROSEMIDE 20 MG/2 ML VIAL IVP ONE ×2 (08:18→13:45)
[2017-05-03] MEDS: PANTOPRAZOLE SODIUM 40 MG TAB PO SCH (09:36)
[2017-05-03] MEDS: valACYclovir 500 MG TAB PO SCH (09:36)
[2017-05-03] MEDS: MICAFUNGIN NA 100 MG in NS 100 ML IV SCH (09:36)
--- NOTE | 2017-05-03 10:11 | HOSPPROG ---
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 No CP/SOB/abd pain. Transfusion starting now. Appetite OK. Objective: Vital Signs Temp Pulse Resp BP Pulse Ox 99.0 F 70 14 98/54 L 94 05/03/17 07:10 05/03/17 07:10 05/03/17 07:10 05/03/17 07:10 05/03/17 07:10 Microbiology 04/28/17 05:00 Blood Culture - Final Blood 04/28/17 04:52 Blood Culture - Final Blood Laboratory Results 05/03/17 05:30 05/03/17 05:30 05/01/17 05/02/17 05/03/17 11:59 11:59 11:59 Intake Total 400 1828 Output Total Balance 400 1828 - Physical Exam Constitutional: no apparent distress, appears nourished, not in pain Eyes: anicteric sclera Ears, Nose, Mouth, Throat: moist mucous membranes Cardiovascular: regular rate and rhythym Respiratory: no respiratory distress, no rales or rhonchi, clear to auscultation Gastrointestinal: normoactive bowel sounds, soft, non-tender abdomen Skin: warm Psychiatric: interacting appropriately, not anxious, not encephalopathic, thought process linear ICD10 Worksheet Patient Problems: Problems Problem Status Onset AML (acute myeloblastic leukemia) Acute Neutropenic colitis Acute Thrombocytopenia due to diminished platelet production Acute
--- NOTE | 2017-05-03 12:11 | PCMIDPN ---
Assessment/Plan: Assessment/Plan: 1. Streptococcus mitis bacteremia: -f/u cultures from 04/28/17 and 04/30/17 ngtd -Currently on Cefepime secondary to #2 - As counts improve, hope to narrow down if remains afebrile -on D#6/ of therapy specifically for this. 2. Neutrapenic Fever:- - no spiking temps since 05/01/17. -f/u blood cx with ngtd - no specific symptoms to otherwise localize source for fevers -Currently on empiric Cefepime and Micafungin (added over weekend due to ongoing fevers) - CXR from 04/26/17 reviewed: atelectasis without pneumonia. -Monitor counts, still very low. - Hope to tailor down therapy as counts improve and remains afebrile. -plan of care reviewed with patient. - care coordinated with RN. Meds Cefepime 2g q8- 04/26/17 micafungin- 04/30/17 Subjective: afebrile. feels better overall. Denies sob, cough, abd pain, diarrhea, urinary symptoms. Mouth feels better also. HE tells me he had some open areas on buccal mucosa he thinks from his teeth cutting into it. This has resolved. Denies odynophagia. Objective: Vital Signs Temp Pulse Resp BP Pulse Ox 36.9 C 74 14 102/60 97 05/03/17 10:59 05/03/17 10:59 05/03/17 10:59 05/03/17 10:59 05/03/17 10:59 Microbiology 04/28/17 05:00 Blood Culture - Final Blood 04/28/17 04:52 Blood Culture - Final Blood Laboratory Results 05/03/17 05:30 05/03/17 05:30 05/02/17 05/03/17 05/04/17 05:59 05:59 05:59 Intake Total 400 1828 Balance 400 1828 - Physical Exam General Appearance: alert, no apparent distress EENT: other (no oral ulcers), No thrush Respiratory: lungs clear Cardiac/Chest: regular rate, rhythm Extremities: No swelling Abdomen: normal bowel sounds, non-tender, soft, No distended Skin: No erythema ICD10 Worksheet Patient Problems: Problems Problem Status Onset AML (acute myeloblastic leukemia) Acute Neutropenic colitis Acute Thrombocytopenia due to diminished platelet production Acute
[2017-05-04] MEDS: CEFEPIME HCL 2 GM in STERILE WATER INJ 12.5 ML IV SCH ×3 (05:52→21:35)
[2017-05-04 06:45] LABS: PLATELET COUNT 27 10^3/uL (150-400)
[2017-05-04] MEDS: valACYclovir 500 MG TAB PO SCH (09:35)
[2017-05-04] MEDS: PANTOPRAZOLE SODIUM 40 MG TAB PO SCH (09:35)
[2017-05-04] MEDS: MICAFUNGIN NA 100 MG in NS 100 ML IV SCH (09:36)
--- NOTE | 2017-05-04 13:09 | SOAPPROG ---
SOAP Progress Note Assessment/Plan: Assessment: 1. 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 CBC is adequate. No recovery yet. No BM was done to eval effect of therapy. Continue BSC. Expect recovery around day 22-28. 2. Pancytopenia: No TXN today 3. S imitis bacteremia afebrile on cefepime and micafungin. 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 He is currently doing well. He had &+3 on 04/17. He feels well today Objective: Vital Signs Temp Pulse Resp BP Pulse Ox 37.1 C 64 16 110/60 96 05/04/17 11:34 05/04/17 11:34 05/04/17 11:34 05/04/17 11:34 05/04/17 11:34 Microbiology 04/28/17 05:00 Blood Culture - Final Blood 04/28/17 04:52 Blood Culture - Final Blood Laboratory Results 05/04/17 06:30 05/04/17 06:30 05/03/17 05/04/17 05/05/17 05:59 05:59 05:59 Intake Total 182 2032.5 Balance 1822.5 Alert Neck neg oral neg for thrush or ulcer CVS RR Abdomen: neg [place]aus Neg Ext: neg ICD10 Worksheet Patient Problems: Problems Problem Status Onset AML (acute myeloblastic leukemia) Acute Neutropenic colitis Acute Thrombocytopenia due to diminished platelet production Acute
--- NOTE | 2017-05-04 14:29 | PCMIDPN ---
Assessment/Plan: # Neutropenic fever : no fever since 04/29 but persistent neutropenia. --DC micafungin as no fungal etiology identified # Streptococcus Mitis bacteremia likely due to GI translocation in the setting of neutropenia --continue cefepime for coverage of Streptococcus in light of persistent neutropenia Medication Cefepime 2 g IV Q 8, # 7 Micafungin 100 mg IV daily, # 4 Valtrex 1 g p.o. Daily Microbiology 04/26 blood cultures 2 sets Streptococcus oralis 04/28 blood cultures 2 sets negative 04/30 blood cultures 2 sets no growth today Subjective: Patient denies abdominal pain, diarrhea, mouth pain, rash. He is generally doing well Objective: Vital Signs Temp Pulse Resp BP Pulse Ox 37.1 C 64 16 110/60 96 05/04/17 11:34 05/04/17 11:34 05/04/17 11:34 05/04/17 11:34 05/04/17 11:34 Laboratory Results 05/04/17 06:30 05/04/17 06:30 05/03/17 05/04/17 05/05/17 05:59 05:59 05:59 Intake Total 1828 2.5 Balance 1827 2031.5 - Physical Exam General Appearance: alert, no apparent distress, other (Patient looks remarkably well other than pallor) EENT: other (No oral ulcerations), No thrush Respiratory: lungs clear, No accessory muscle use Cardiac/Chest: regular rate, rhythm Extremities: No pedal edema, No calf tenderness, No inflammation Abdomen: normal bowel sounds, non-tender, soft Male Genitalia: No wisdom Skin: pallor, other (Scattered petechiae), No rash Neuro/Psych: alert, normal mood/affect, oriented x 3 - Time Spent With Patient Time Spent with Patient: greater than 35 minutes (Reviewed laboratory results and plans for antibiotic changes with patient, care coordinated with hospital) Time Spent with Patient: Greater than 35 minutes spent on this patients care, greater than 50% of time spent counseling, educating, and coordinating care regarding the above mentioned plan. ICD10 Worksheet Patient Problems: Problems Problem Status Onset AML (acute myeloblastic leukemia) Acute Neutropenic colitis Acute Thrombocytopenia due to diminished platelet production Acute
--- NOTE | 2017-05-04 14:59 | HOSPPROG ---
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 No fevers/chills. No CP or SOB. No abdominal pain , N/V. Eating fairly well. No complaints, "just waiting for blood counts to improve". Objective: Vital Signs Temp Pulse Resp BP Pulse Ox 37.1 C 64 16 110/60 96 05/04/17 11:34 05/04/17 11:34 05/04/17 11:34 05/04/17 11:34 05/04/17 11:34 Laboratory Results 05/04/17 06:30 05/04/17 06:30 05/03/17 05/04/17 05/05/17 05:59 05:59 05:59 Intake Total 1828 2032.5 Balance 1828 2032.5 - Physical Exam Constitutional: no apparent distress Eyes: PERRL Ears, Nose, Mouth, Throat: moist mucous membranes Cardiovascular: regular rate and rhythym Respiratory: no respiratory distress, clear to auscultation Gastrointestinal: normoactive bowel sounds, soft, non-tender abdomen Skin: warm Musculoskeletal: full muscle strength Neurologic: AAOx3 Psychiatric: interacting appropriately ICD10 Worksheet Patient Problems: Problems Problem Status Onset AML (acute myeloblastic leukemia) Acute Neutropenic colitis Acute Thrombocytopenia due to diminished platelet production Acute
[2017-05-05] MEDS: CEFEPIME HCL 2 GM in STERILE WATER INJ 12.5 ML IV SCH ×3 (05:40→21:36)
[2017-05-05 06:04] LABS: PLATELET COUNT 21 10^3/uL (150-400)
[2017-05-05] MEDS: PANTOPRAZOLE SODIUM 40 MG TAB PO SCH (08:50)
[2017-05-05] MEDS: valACYclovir 500 MG TAB PO SCH (08:50)
--- NOTE | 2017-05-05 10:36 | PCMIDPN ---
Assessment/Plan: Assessment: Neutropenic fever which has since resolved. Cause of the fever was strep Midas bacteremia which was likely secondary to gastrointestinal translocation. Patient's symptomatic we much improved on antibiotic therapy. Currently on cefepime monotherapy. Awaiting recovery in neutropenia. Could after recovery switch to once daily ceftriaxone for completion of treatment. Duration should be 14 days from clearance. Plan: 1. Continue IV cefepime. 2. Follow neutropenia. Subjective: Patient is resting in his hospital room. He reports no new symptoms. Perhaps some minor sweats at night but otherwise doing well. Objective: Cefepime # 8 Vital Signs Temp Pulse Resp BP Pulse Ox 36.9 C 72 18 112/64 97 05/05/17 08:34 05/05/17 08:34 05/05/17 08:34 05/05/17 08:34 05/05/17 08:34 Laboratory Results 05/05/17 05:44 05/05/17 05:44 05/04/17 05/05/17 05/06/17 05:59 05:59 05:59 Intake Total 2.5 Balance 2031.5 - Physical Exam General Appearance: WD/WN, alert, no apparent distress, non-toxic Respiratory: lungs clear, No respiratory distress Cardiac/Chest: regular rate, rhythm, No tachycardia Skin: normal color, warm/dry, No rash Neuro/Psych: alert, normal mood/affect, oriented x 3 ICD10 Worksheet Patient Problems: Problems Problem Status Onset AML (acute myeloblastic leukemia) Acute Neutropenic colitis Acute Thrombocytopenia due to diminished platelet production Acute
--- NOTE | 2017-05-05 11:21 | SOAPPROG ---
SOAP Progress Note Assessment/Plan: Assessment: 1. 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 CBC is adequate. No recovery yet. No BM was done to eval effect of therapy. He is on day 21. Continue BSC. Expect recovery around day 22-28. 2. Pancytopenia: No TXN today. Counts look OK 3. S imitis bacteremia afebrile on cefepime and micafungin. Afebrile Plan: - await recovery of blood counts 05/03/17 08:12 05/03/17 08:22 05/04/17 13:05 05/05/17 11:21 Subjective: He is doing well. Objective: Vital Signs Temp Pulse Resp BP Pulse Ox 36.9 C 72 18 112/64 97 05/05/17 08:34 05/05/17 08:34 05/05/17 08:34 05/05/17 08:34 05/05/17 08:34 Laboratory Results 05/05/17 05:44 05/05/17 05:44 05/04/17 05/05/17 05/06/17 05:59 05:59 05:59 Intake Total 2.5 Balance 2.5 ICD10 Worksheet Patient Problems: Problems Problem Status Onset AML (acute myeloblastic leukemia) Acute Neutropenic colitis Acute Thrombocytopenia due to diminished platelet production Acute
--- NOTE | 2017-05-05 16:19 | HOSPPROG ---
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 He has had some very low grade temps overnight, 99 degrees. No chills or sweats. No CP, SOB, abdominal pain, N/V. Objective: Vital Signs Temp Pulse Resp BP Pulse Ox 37.0 C 70 18 104/62 97 05/05/17 12:53 05/05/17 12:53 05/05/17 12:53 05/05/17 12:53 05/05/17 12:53 Laboratory Results 05/05/17 05:44 05/05/17 05:44 05/04/17 05/05/17 05/06/17 05:59 05:59 05:59 Intake Total 2031.5 Balance 2031. - Physical Exam Constitutional: no apparent distress Eyes: PERRL Ears, Nose, Mouth, Throat: moist mucous membranes Cardiovascular: regular rate and rhythym Respiratory: no respiratory distress Gastrointestinal: normoactive bowel sounds, soft, non-tender abdomen Skin: warm Musculoskeletal: full muscle strength Neurologic: AAOx3 Psychiatric: interacting appropriately ICD10 Worksheet Patient Problems: Problems Problem Status Onset AML (acute myeloblastic leukemia) Acute Neutropenic colitis Acute Thrombocytopenia due to diminished platelet production Acute
[2017-05-06] MEDS: CEFEPIME HCL 2 GM in STERILE WATER INJ 12.5 ML IV SCH ×3 (05:52→21:41)
[2017-05-06 06:24] LABS: PLATELET COUNT 19 10^3/uL (150-400)
--- NOTE | 2017-05-06 10:28 | SOAPPROG ---
SOAP Progress Note Assessment/Plan: Assessment: 1. 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 CBC is recovering and I thin he can go home over the weekend. Today is day 22. The next steps are then to repreat BM and work to see if he has a match. In any event he will probably receive HIDAC for 6 days before anything happens with MUD. 2. Pancytopenia: recovering. 3. S imitis bacteremia afebrile on cefepime and micafungin. Afebrile. We will want to have an Abx plan for discharge Plan: - await recovery of blood counts then home in perhaps 1-2 days. 05/03/17 08:12 05/03/17 08:22 05/04/17 13:05 05/05/17 11:21 05/06/17 10:25 Subjective: he feels well with no complaints Objective: Vital Signs Temp Pulse Resp BP Pulse Ox 36.9 C 71 18 108/66 93 05/06/17 09:14 05/06/17 09:14 05/06/17 09:14 05/06/17 09:14 05/06/17 09:14 Microbiology 04/30/17 05:50 Blood Culture - Final Blood 04/30/17 06:05 Blood Culture - Final Blood Laboratory Results 05/06/17 06:02 05/05/17 05:44 05/05/17 05/06/17 05/07/17 05:59 05:59 05:59 Intake Total 512.5 Balance 512.5 Healthy appearance HEENT neg Neck supple WO LN Lungs clear CVS No murmur. Abd: neg - Time Spent With Patient Time Spent With Patient: 20 min ICD10 Worksheet Patient Problems: Problems Problem Status Onset AML (acute myeloblastic leukemia) Acute Neutropenic colitis Acute Thrombocytopenia due to diminished platelet production Acute
[2017-05-06] MEDS: PANTOPRAZOLE SODIUM 40 MG TAB PO SCH (10:30)
[2017-05-06] MEDS: valACYclovir 500 MG TAB PO SCH (10:30)
--- NOTE | 2017-05-06 14:03 | HOSPPROG ---
Hospitalist Progress Note Assessment/Plan: # neutropenic fever - d/t strep mitas bacteremia, afebrile >72 hrs. Discussed with ID. 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 No fevers. No pain. He is bored. Objective: Vital Signs Temp Pulse Resp BP Pulse Ox 36.8 C 69 18 112/64 96 05/06/17 13:05 05/06/17 13:05 05/06/17 13:05 05/06/17 13:05 05/06/17 13:05 Microbiology 04/30/17 05:50 Blood Culture - Final Blood 04/30/17 06:05 Blood Culture - Final Blood Laboratory Results 05/06/17 06:02 05/05/17 05:44 05/05/17 05/06/17 05/07/17 05:59 05:59 05:59 Intake Total 512.5 Balance 512.5 - Physical Exam Constitutional: no apparent distress Eyes: PERRL Ears, Nose, Mouth, Throat: moist mucous membranes Cardiovascular: regular rate and rhythym Respiratory: no respiratory distress Gastrointestinal: normoactive bowel sounds, soft, non-tender abdomen Skin: warm Musculoskeletal: full muscle strength Neurologic: AAOx3 Psychiatric: interacting appropriately ICD10 Worksheet Patient Problems: Problems Problem Status Onset AML (acute myeloblastic leukemia) Acute Neutropenic colitis Acute Thrombocytopenia due to diminished platelet production Acute
--- NOTE | 2017-05-06 16:56 | ASMTCMCOM ---
CM Note CM Note Notes: Pt will be ready for DC soon. Met with pt and to discuss PICC line supplies. Pt will need picc line care until he is ready to get his bone marrow transplant. Sent referral to [facility]. Per barbara, pt's [employer] ins may cover at 100% but they blanca confirm on Staurday. CM to follow. Date Signed: 05/06/2017 04:55 PM Electronically Signed By:Ewa Fraire LCSW
[2017-05-07] MEDS: CEFEPIME HCL 2 GM in STERILE WATER INJ 12.5 ML IV SCH (05:15)
[2017-05-07 06:02] LABS: PLATELET COUNT 25 10^3/uL (150-400)
[2017-05-07] MEDS: PANTOPRAZOLE SODIUM 40 MG TAB PO SCH (08:46)
[2017-05-07] MEDS: valACYclovir 500 MG TAB PO SCH (08:46)
--- NOTE | 2017-05-07 10:55 | SOAPPROG ---
SOAP Progress Note Assessment/Plan: Assessment/Plan: 66 yo gentleman w relapsed AML admitted for re-induction 1. Relapsed AML - admitted for 7+3, Day 23 today counts recovering as expected supportive care cefepime and valacyclovir (had rash w acyclovir); off micafungin final bone marrow results from recent show 33% blasts; cytogenetics/molecular analysis still pending plan transplant at [facility] and will need to be coordinated as outpt for MUD 2. Strep midans bacteremia - cefepime per ID counts recovering and from my standpoint could d/c home when abx figured out ? can pt go home w IV abx 2. Hx of neutropenic enterocolitis 3. Hx of Cuevas's esophagus 4. Thrombocytopenia - AML + chemo counts improving 5. Nausea - improved D/C w heparinized saline for PICC flushes 05/07/17 10:52 Subjective: No acute events ready to go home Objective: Vital Signs Temp Pulse Resp BP Pulse Ox 36.9 C 62 16 110/68 95 05/07/17 08:35 05/07/17 08:35 05/07/17 08:35 05/07/17 08:35 05/07/17 08:35 Microbiology 04/30/17 05:50 Blood Culture - Final Blood 04/30/17 06:05 Blood Culture - Final Blood Laboratory Results 05/07/17 05:07 05/05/17 05:44 05/06/17 05/07/17 05/08/17 05:59 05:59 05:59 Intake Total 512.5 1100 Balance 512.5 1100 Gen - NAD HEENT - no mucositis CV - RRR Resp - CTAB Abd - soft, NT Ext - no edema ICD10 Worksheet Patient Problems: Problems Problem Status Onset AML (acute myeloblastic leukemia) Acute Neutropenic colitis Acute Thrombocytopenia due to diminished platelet production Acute
--- NOTE | 2017-05-07 12:05 | PCMIDPN ---
Assessment/Plan: Assessment/Plan: * Neutropenic fever with Streptococcus mitis/oralis bacteremia: Remains afebrile with persistent neutropenia although overall white blood cell count is improving. Given this finding, think can consider completing therapy as outpatient with ceftriaxone 2 g IV daily through 05/12/2017 with oral levofloxacin 500 mg p.o. daily given persistent neutropenia as prophylactic agent. Ceftriaxone can be discontinued on 05/12/2017 provided ANC is greater than 500 (represents 2 weeks post negative blood cultures). Otherwise, would continue until ANC reaches 500. Findings and plan reviewed with patient, Dr. Morales, and Dr. Raya. 05/07/17 12:02 Subjective: Patient without specific complaints. Objective: Vital Signs Temp Pulse Resp BP Pulse Ox 36.9 C 62 16 110/68 95 05/07/17 08:35 05/07/17 08:35 05/07/17 08:35 05/07/17 08:35 05/07/17 08:35 Microbiology 04/30/17 05:50 Blood Culture - Final Blood 04/30/17 06:05 Blood Culture - Final Blood Laboratory Results 05/07/17 05:07 05/05/17 05:44 05/06/17 05/07/17 05/08/17 05:59 05:59 05:59 Intake Total 512.5 1100 Balance 512.5 1100 Cefepime # 10 Prophylactic Valtrex ANC 5 - Physical Exam General Appearance: alert, no apparent distress EENT: No scleral icterus, No thrush Respiratory: lungs clear, No normal breath sounds Cardiac/Chest: regular rate, rhythm, No systolic murmur Abdomen: non-tender, No distended Skin: No rash - Line/s RUE PICC Lines: No drainage, No erythema ICD10 Worksheet Patient Problems: Problems Problem Status Onset AML (acute myeloblastic leukemia) Acute Neutropenic colitis Acute Thrombocytopenia due to diminished platelet production Acute
[2017-05-07] MEDS ORDERED: cefTRIAXone 2 GM in STERILE WATER INJ 20 ML IV SCH (12:30)
[2017-05-07 13:06] VITALS: BP 114/68; PULSE 66; RESP 18; TEMP 98.3; O2SAT 96
--- NOTE | 2017-05-07 14:16 | HOSPPROG ---
Hospitalist Progress Note Assessment/Plan: DISCHARGE DIAGNOSES: -neutropenic fever -strep mitas bacteremia; suspect dental or bowel source -pancytopenia due to chemotherapy -recent relapse of acute myelogenous leukemia recently status post re-induction therapy -prior history of neutropenic enterocolitis CONSULTANTS: Infectious disease consultants from [facility] Dr. Renee Null and other consultants from [facility] PROCEDURES: Transthoracic echocardiogram with absence of any vegetations, good ejection fraction at 60% HOSPITAL COURSE SUMMARY: This patient has a previous history of AML and had gone through induction and consolidation therapy and was in remission had a recent relapse of his disease. 3 weeks before this admission he underwent re-induction therapy but he comes in at this time with high fevers and severe neutropenia. Cultures of blood grew Strep Mitas, so the presumed source of this organism is do a dental related infection or a bowel infection. There was no clinical evidence of infection of his PICC line. The patient was admitted the hospital and treated with intravenous cefepime and he responded very well to this although it was somewhat slow. At this time he is without fevers, there has been no signs of sepsis or organ failure, no signs of other complications. He still quite neutropenic it will need ongoing antibiotics to treat this infection. At this point however he stable enough that we feel he can be treated out of hospital. He will be coming to our infusion center for daily treatments with 2 g IV Rocephin starting tomorrow at noon. PENDING TEST RESULTS: None MEDICATION CHANGES: Cefepime 2 g IV daily Levaquin 500 mg daily for neutropenia prophylaxis Valacyclovir 1000 mg twice daily for neutropenia prophylaxis FOLLOW-UP PLAN: He will follow up at the [facility] in 1 week Follow up with Dr. Null this coming week in the cancer clinics. Greater than 35 minutes bedside and care coordination time today Objective: Vital Signs Temp Pulse Resp BP Pulse Ox 36.8 C 66 18 114/68 96 05/07/17 13:03 05/07/17 13:03 05/07/17 13:03 05/07/17 13:03 05/07/17 13:03 Laboratory Results 05/07/17 05:07 05/05/17 05:44 05/06/17 05/07/17 05/08/17 06:59 06:59 06:59 Intake Total 512.5 1100 Balance 512.5 1100 - Time Spent With Patient Time Spent with Patient: greater than 35 minutes Time Spent with Patient: Greater than 35 minutes spent on this patients care, greater than 50% of time spent counseling, educating, and coordinating care regarding the above mentioned plan. ICD10 Worksheet Patient Problems: Problems Problem Status Onset AML (acute myeloblastic leukemia) Acute Neutropenic colitis Acute Thrombocytopenia due to diminished platelet production Acute
--- NOTE | 2017-05-07 14:36 | ASDISCHSUM ---
Discharge Information Plan Status:IV ABX/Infusion Medically Cleared to Leave:05/07/2017 Discharge Date:05/07/2017 CM D/C Disposition:Home, Routine, Self-Care ADT D/C Disposition:Home, Routine, Self-Care Projected Discharge Date:05/08/2017 11:00 AM Transportation at D/C:Family Discharge Delay Reason: Follow-Up Date:05/08/2017 11:00 AM Discharge Slot: Final Diagnosis: Placement Information Referral Type:Home Infusion Referral ID:[id number] Provider Name: Address 1: Phone Number: Address 2: Fax Number: City: Selection Factors: State: Patient Contact Information Contact Name:MEGHAN Relationship: Address:[address] Work Phone: [facility]:[place] Alternate Phone: [facility]/Zip Code:[place] [address] Email: Financial Information Financial Class:[employer] Primary Plan Desc:[facility] Primary Plan Number:[id number] Secondary Plan Desc: Secondary Plan Number: Assessment Information [facility] CM Progress Note CM Note CM Note Notes: Pt direct admit from [facility] for recurrence of AML. Plan is to place PICC and start chemo for reinduction. pt planning on bone marrow transplant in future. CM to follow for DC needs. Date Signed: 04/15/2017 03:37 PM Electronically Signed By:Ewa Fraire LCSW [facility] CM Progress Note CM Note CM Note Notes: D/C needs TBD. No therapies have been ordered. CM available if d/c needs arise. Date Signed: 04/18/2017 12:51 PM Electronically Signed By:Yvette Fallon LCSW [facility] CM Progress Note CM Note CM Note Notes: Patient chart reviewed. Patient is here for re-induction of chemotherapy, He is currently independent with ADLS and no needs identified at this time. Cm available should needs arise. Date Signed: 04/19/2017 01:33 PM Electronically Signed By:Carey Ramos RN [facility] CM Progress Note CM Note CM Note Notes: Pt will have no DC needs. However, if he DCs with PICC line, he may to be set up with outpt PICC care. Date Signed: 04/21/2017 04:15 PM Electronically Signed By:Ewa Fraire LCSW [facility] CM Progress Note CM Note CM Note Notes: Chart reviewed. Patient up ambulating in the halls independently. Tolerating chemotherapy. No needs dentifed. CM ill continue to follow and be available should needs arise. Date Signed: 04/22/2017 04:27 PM Electronically Signed By:Carey Ramos RN [facility] CM Progress Note CM Note CM Note Notes: Met with patient who is doing well, up in halls walking. Plan is to [facility] in near future for BM transplant. He currently has a PICC line in place, if he discharged with IV line will need home infusion services. CM to follow. Date Signed: 04/25/2017 04:33 PM Electronically Signed By:aCrey Ramos RN [facility] CM Progress Note CM Note CM Note Notes: Pt continuing on ABX, day 15 of reinduction chemo. Still with fever/neutropenia, waiting for recovery of marrow counts. D/C plan remains the same - if he discharges home with a PICC, he will need homeworker. Date Signed: 05/02/2017 02:22 PM Electronically Signed By:ETHAN Sierra [facility] CM Progress Note CM Note CM Note Notes: Pt will be ready for DC soon. Met with pt and to discuss PICC line supplies. Pt will need picc line care until he is ready to get his bone marrow transplant. Sent referral to [facility]. Per barbara, pt's [employer] ins may cover at 100% but they blanca confirm on Staurday. CM to follow. Date Signed: 05/06/2017 04:55 PM Electronically Signed By:Ewa Fraire LCSW Case Management Discharge Plan Note Case Management Discharge Discharge Order Complete? Answers: Yes Patient to Obtain Answers: via Family Medications Transportation Arranged Answers: Family/Friends Family Notified Answers: Yes Discharge Comments Notes: Pt is discharging home today with his . He will come to the Infusion Clinic for his IV Rocephin beginning tomorrow at noon. [facility] notified. Date Signed: 05/07/2017 02:33 PM Electronically Signed By:ETHAN Sierra Intervention Information
== END 2017-05-07 14:47 | disposition home or self-care (01) | DRG 837 ==
LOC: F1N 10:07
PROVIDERS: ADMIT Family Medicine; ATTEND Family Medicine
PROC: 3E03305 Introduction of Other Antineoplastic into Peripheral Vein, Percutaneous Approach (ICD-10-PCS; principal; 2017-04-15)
PROC: 30233R1 Transfusion of Nonautologous Platelets into Peripheral Vein, Percutaneous Approach (ICD-10-PCS; 2017-04-25)
PROC: B245ZZ4 Ultrasonography of Left Heart, Transesophageal (ICD-10-PCS; 2017-04-28)
PROC: 30233N1 Transfusion of Nonautologous Red Blood Cells into Peripheral Vein, Percutaneous Approach (ICD-10-PCS; 2017-04-30)
DX: Z51.11 Encounter for antineoplastic chemotherapy (principal); D61.810 Antineoplastic chemotherapy induced pancytopenia; C92.02 Acute myeloblastic leukemia, in relapse; R78.81 Bacteremia; B95.5 Unspecified streptococcus as the cause of diseases classified elsewhere; H11.32 Conjunctival hemorrhage, left eye; D70.9 Neutropenia, unspecified; Z87.891 Personal history of nicotine dependence; Z96.653 Presence of artificial knee joint, bilateral
CPT/HCPCS: 99001-90; J0692; J0696; J1200; J1650; J2248; J2405; J2469; J2997; J3370; J9100; J9211; P9016; P9037; P9040; P9073

== ENCOUNTER 2017-06-21 13:39 | Outpatient (CLI) | payer OTHER ==
[2017-06-21 16:32] VITALS: BP 112/68
== END 2017-06-21 17:00 | disposition home or self-care (01) ==
LOC: FOBOP 13:39 → F1NOP 17:00
PROVIDERS: ATTEND Internal Medicine Hematology & Oncology
DX: C92.90 Myeloid leukemia, unspecified, not having achieved remission (principal)
CPT/HCPCS: 36430; P9037; 99001-90

== ENCOUNTER 2017-06-22 15:08 | Outpatient (CLI) | payer OTHER ==
[2017-06-22] MEDS ORDERED: diphenhydrAMINE 25 MG CAP PO ONE (15:30)
[2017-06-22] MEDS ORDERED: ACETAMINOPHEN 325 MG TAB PO ONE (15:30)
[2017-06-22] MEDS ORDERED: ACETAMINOPHEN 325 MG TAB ONE (15:35)
== END 2017-06-22 17:25 | disposition home or self-care (01) ==
LOC: FOBOP 15:08
PROVIDERS: ATTEND Internal Medicine Hematology & Oncology
PROC: 30233R1 Transfusion of Nonautologous Platelets into Peripheral Vein, Percutaneous Approach (ICD-10-PCS; principal; 2017-06-22)
DX: C92.00 Acute myeloblastic leukemia, not having achieved remission (principal)
CPT/HCPCS: 99001-90; J1642; P9037

== ENCOUNTER 2017-06-24 11:19 | Outpatient (CLI) | payer OTHER ==
[2017-06-24] MEDS ORDERED: ACETAMINOPHEN 325 MG TAB PO ONE (12:00)
[2017-06-24] MEDS ORDERED: diphenhydrAMINE 25 MG CAP PO ONE (12:00)
== END 2017-06-24 13:30 | disposition home or self-care (01) ==
LOC: FOBOP 11:19
PROVIDERS: ATTEND Internal Medicine Hematology & Oncology
PROC: 30233R1 Transfusion of Nonautologous Platelets into Peripheral Vein, Percutaneous Approach (ICD-10-PCS; principal; 2017-06-24)
DX: C92.00 Acute myeloblastic leukemia, not having achieved remission (principal)
CPT/HCPCS: 36430; P9073; J1642

== ENCOUNTER 2017-06-27 12:03 | Outpatient (CLI) | payer OTHER | END 2017-06-27 13:58 | disposition home or self-care (01) | LOC: FOBOP 12:03 | PROVIDERS: ATTEND Internal Medicine Hematology & Oncology | PROC: 30233R1 Transfusion of Nonautologous Platelets into Peripheral Vein, Percutaneous Approach (ICD-10-PCS; principal; 2017-06-27) | DX: C92.00 Acute myeloblastic leukemia, not having achieved remission (principal) | CPT/HCPCS: 36430; P9073 ==